=== PATIENT | female | born 1935 | race Caucasian/White ===

== ENCOUNTER 2017-10-12 11:45 | Inpatient (IN) | payer MEDICARE ==
[2017-10-12] MEDS ORDERED: ONDANSETRON HCL IV 4 MG/2 ML VIAL IV ONE (11:59)
[2017-10-12] MEDS ORDERED: 0.9 % SODIUM CHLORIDE 1,000 ML BAG IV ONE (11:59)
--- NOTE | 2017-10-12 12:14 | Emergency Department Record ---
History of Present Illness - General Chief complaint: Nausea, Vomiting, Diarrhea Stated complaint: VOMITING AND DIARRHEA Time Seen by Provider: 10/12/17 11:58 Source: Patient Mode of Arrival: Ambulatory Limitations: No limitations - History of Present Illness Initial comments: The patient is here due to a one day hx of frequent nausea, vomiting, and loose watery stools. She also is having diffuse AP that now seems to be worse in the lower abdomen. There has been no reported fever, blood in the vomit or stool, dysuria or back pain. The patient has had multiple abdominal surgeries including an Appendectomy and Cholecystectomy. MD complaint: Abdominal pain, Diarrhea, Nausea, Vomiting Onset/Timin -: Days(s) Description of Vomiting: Watery Description of Diarrhea: Water Location: Diffuse Severity: Moderate Severity scale (1-10): 5 Quality: Aching, Constant, Cramping - Related Data Home Medications Medication Instructions Recorded Confirmed Last Taken Cholecalciferol (Vitamin D3) 2,000 unit PO DAILY 10/12/17 10/12/17 1 Day Ago [Vitamin D3] ~10/11/17 Hydrocodone/Acetaminophen [[place] 1 tab PO Q6H PRN 10/12/17 10/12/17 1 Day Ago 5mg/325mg] ~10/11/17 Previous Rx's Medication Instructions Recorded Dicyclomine HCl [Bentyl] 10 mg PO Q8H #20 cap 04/30/16 Allergies Allergy/AdvReac Type Severity Reaction Status Date / Time citalopram hydrobromide Allergy Severe CONFUSION Verified 10/12/17 11:58 [From Celexa] nifedipine [From PROCARDIA] Allergy Severe CHF Verified 10/12/17 11:58 pregabalin [From LYRICA] Allergy Severe SWELLING Verified 10/12/17 11:58 OF THE FACE hydromorphone HCl Allergy Intermediate BEHAVIORAL Verified 10/12/17 11:58 [From DILAUDID] CHANGES mirabegron [From Myrbetriq] Allergy Intermediate RASH Verified 10/12/17 11:58 morphine [MORPHINE] Allergy Unknown BEHAVIORAL Verified 10/12/17 11:58 CHANGES amitriptyline AdvReac ALTERED Verified 10/12/17 12:38 MENTAL STATUS carbamazepine AdvReac NAUSEA Verified 10/12/17 12:38 gabapentin AdvReac DIZZINESS Verified 10/12/17 12:38 oxcarbazepine AdvReac MUSCLE PAIN Verified 10/12/17 12:38 oxycodone AdvReac MUSCLE PAIN Verified 10/12/17 12:38 phenytoin [From Dilantin] AdvReac HYPERSENSIT Verified 10/12/17 12:38 IVITY potassium chloride AdvReac MUSCLE PAIN Verified 10/12/17 12:38 Travel Screening - Travel/Exposure Within Last 30 Days Have you traveled within the last 30 days?: No - Travel/Exposure Within Last Year Have you traveled outside the [place] in the last year?: No - Additonal Travel Details Have you been exposed to anyone with a communicable illness?: No - Travel Symptoms Symptom Screening: None Review of Systems Constitutional: Denies: Chills, Fever Eyes: Denies: Eye discharge ENT: Denies: Congestion Respiratory: Denies: Cough, Dyspnea Past Medical History - SOCIAL HISTORY Smoking Status: Never smoker Alcohol Use: None Drug Use: None - RESPIRATORY Hx Respiratory Disorders: No - CARDIOVASCULAR Hx Cardio Disorders: No - NEURO Hx Neuro Disorders: Yes Hx Neuropathy: Yes - GI Hx Diverticulitis: Yes Hx Reflux: Yes Hx Hepatitis/Jaundice: Yes (hep b 1964) Hx Irritable Bowel: Yes - Hx Genitourinary Disorders: No - ENDOCRINE Hx Endocrine Disorders: No - MUSCULOSKELETAL Hx Musculoskeletal Disorders: Yes Hx Arthritis: Yes - PSYCH Hx Psych Problems: No - HEMATOLOGY/ONCOLOGY Hx Hematology/Oncology Disorders: Yes Hx Cancer: Yes Comment:: gall bladder Family Medical History Any Significant Family History?: Yes Physical Exam - General General Appearance: Alert, Oriented x3, Cooperative, No acute distress - Head Head exam: Atraumatic, Normocephalic, Normal inspection - Eye Eye exam: Normal appearance, PERRL - Neck Neck exam: Normal inspection, Full ROM. negative: Tenderness - Respiratory Respiratory exam: Normal lung sounds bilaterally. negative: Respiratory distress - Cardiovascular Cardiovascular Exam: Regular rate, Normal rhythm, Normal heart sounds - GI/Abdominal GI/Abdominal exam: Soft, Tenderness (There is diffuse tenderness in all 4 quads. ). negative: Guarding, Organomegaly, Pulsatile mass, Rebound, Rigid - Extremities Extremities exam: Normal inspection, Full ROM, Normal capillary refill. negative: Tenderness - Neurological Neurological exam: Alert. negative: Motor sensory deficit Course Vital Signs 10/12/17 11:50 Temperature 98.4 F Pulse Rate 96 H Respiratory 16 Rate Blood Pressure 129/52 Pulse Ox 98 - Reevaluation(s) Reevaluation #1: The patient is doing better at this time. She is resting comfortably and is not requesting any pain medicines. 10/12/17 12:37 Reevaluation #2: The patient is doing better at this time. Her pain is much improved and she denies any nausea or vomiting. I did discuss the CT results with her and the need for admission here at [facility]. 10/12/17 15:33 Reevaluation #3: I did discuss the case with Shruthi ([employer]) and she does accept the admission for Dr. Olsen. We also will place a consult to Dr. Tipton. 10/12/17 15:40 Reevaluation #4: I did discuss the case with Dr. Tipton and he agrees with the plan and will consult. 10/12/17 16:06 Medical Decision Making - Data Complexity MDM Data: Labs Ordered and/or Reviewed, X-Ray Ordered and/or Reviewed - Lab Data Result diagrams: 10/12/17 14:43 10/12/17 12:05 - Radiology Data Radiology results: Report reviewed (Abd CT: Partial SBO with transition point in the small bowel. ) Disposition Disposition: Admit Clinical Impression: Small bowel obstruction due to adhesions Disposition: Still a Patient at [facility] Decision to Admit: Admit from ER Decision to Admit Date: 10/12/17 Decision to Admit Time: 15:34 Accepting Physician: Raúl Time Discussed w/Accepting Physician: 15:35 Condition: (2) Stable Time of Disposition: 15:35 Quality - Quality Measures Quality Measures: N/A - Blood Pressure Screening View Details: Yes Does Patient Have Any of the Following: No Blood Pressure Classification: Pre-Hypertensive BP Reading Systolic Measurement: 129 Diastolic Measurement: 52 Screening for High Blood Pressure: < Pre-Hypertensive BP, F/U Documented > [ [id number]] Pre-Hypertensive Follow-up Interventions: Referral to alternative/primary care provider.
[2017-10-12 12:24] LABS: HEMATOCRIT 42.6 % (35.0-47.0); HEMOGLOBIN 13.8 gm/dl (11.6-16.0); MEAN CELL VOLUME 76.6 fl (81-97); MEAN CORPUSCULAR HEMOGLOBIN 24.8 pg (27-33); MEAN CORPUSCULAR HGB CONC 32.4 g/dl (32-36); MEAN PLATELET VOLUME 11.6 fl (7.4-10.4); PLATELET COUNT 396 K/uL (130-400); RED BLOOD COUNT 5.56 M/uL (3.80-5.40)
[2017-10-12 12:25] LABS: BLOOD UREA NITROGEN 19 mg/dL (8-23)
[2017-10-12 12:26] LABS: CREATININE 0.9 mg/dL (0.5-0.9); EST GLOMERULAR FILTRATION RATE > 60 mL/min; WHITE BLOOD COUNT W/O DIFF 22.4 K/uL (4.2-12.2)
[2017-10-12 12:28] LABS: GLUCOSE,RANDOM 158 mg/dL (74-109)
[2017-10-12 12:31] LABS: ALBUMIN 3.8 g/dL (4.0-5.0); ALKALINE PHOSPHATASE 93 U/L (35-104); ALT/SGPT 13 U/L (<33); AST/SGOT 18 U/L (10.0-35.0); LIPASE 26 U/L (13-60)
[2017-10-12 12:35] LABS: BILIRUBIN,DIRECT < 0.2 mg/dL (0-0.3)
[2017-10-12 12:36] LABS: PLATELET ESTIMATE NORMAL (NORMAL)
[2017-10-12] MEDS ORDERED: ONDANSETRON HCL IV 4 MG/2 ML VIAL IVP ONE (13:00)
[2017-10-12] MEDS ORDERED: KETOROLAC 30 MG/ML VIAL IVP ONE (13:00)
[2017-10-12 13:38] LABS: URINE APPEARANCE CLEAR; URINE BILIRUBIN NEGATIVE (NEGATIVE); URINE BLOOD NEGATIVE (NEGATIVE); URINE COLOR YELLOW; URINE GLUCOSE (UA) NEGATIVE (NEGATIVE); URINE KETONE NEGATIVE (NEGATIVE); URINE LEUKOCYTE ESTERASE NEGATIVE (NEGATIVE); URINE NITRITE NEGATIVE (NEGATIVE); URINE PROTEIN NEGATIVE (NEGATIVE); URINE UROBILINOGEN 0.2 E.U./dL (0.20 - 1.00)
[2017-10-12] MEDS ORDERED: 0.9 % SODIUM CHLORIDE 1000ML 1,000 ML IV ONE (14:09)
[2017-10-12 14:49] LABS: HEMATOCRIT 36.8 % (35.0-47.0); HEMOGLOBIN 11.8 gm/dl (11.6-16.0); MEAN CELL VOLUME 77.3 fl (81-97); MEAN CORPUSCULAR HEMOGLOBIN 24.8 pg (27-33); MEAN CORPUSCULAR HGB CONC 32.1 g/dl (32-36); MEAN PLATELET VOLUME 11.6 fl (7.4-10.4); PLATELET COUNT 284 K/uL (130-400); RED BLOOD COUNT 4.76 M/uL (3.80-5.40); RED CELL DISTRIBUTION WIDTH 19.4 % (11.5-14.5); WHITE BLOOD COUNT W/O DIFF 18.2 K/uL (4.2-12.2)
[2017-10-12] MEDS ORDERED: ACETAMINOPHEN 1,000 MG/100 ML BTL IVPB PRN (16:18)
[2017-10-12] MEDS ORDERED: ONDANSETRON HCL IV 4 MG/2 ML VIAL IVP PRN (16:18)
[2017-10-12] MEDS ORDERED: PNEUM 13-VAL/PF 0.5 ML IM ONE (16:40)
[2017-10-12] MEDS: PANTOPRAZOLE SODIUM IV 40 MG VIAL IV SCH (17:13)
[2017-10-12] MEDS: ALPRAZOLAM 0.25 MG TABLET PO SCH (22:09)
[2017-10-13 06:56] LABS: BASO % 0.1 % (0-6); EOS % 2.3 % (0-6); GRAN % 65.4 % (47-80); HEMATOCRIT 35.4 % (35.0-47.0); HEMOGLOBIN 10.9 gm/dl (11.6-16.0); LYMPH % 24.2 % (16-45); MEAN CELL VOLUME 78.8 fl (81-97); MEAN CORPUSCULAR HGB CONC 30.8 g/dl (32-36); MEAN PLATELET VOLUME 11.4 fl (7.4-10.4); PLATELET COUNT 257 K/uL (130-400); RED BLOOD COUNT 4.49 M/uL (3.80-5.40); RED CELL DISTRIBUTION WIDTH 19.3 % (11.5-14.5); WHITE BLOOD COUNT W/O DIFF 8.5 K/uL (4.2-12.2)
[2017-10-13 06:59] LABS: MEAN CORPUSCULAR HEMOGLOBIN 24.2 pg (27-33)
[2017-10-13 07:10] LABS: ALB/GLOB RATIO 1.2 (1.1-1.8); ALBUMIN 2.8 g/dL (4.0-5.0); ALKALINE PHOSPHATASE 66 U/L (35-104); ALT/SGPT 9 U/L (<33); AST/SGOT 13 U/L (10.0-35.0); BLOOD UREA NITROGEN 10 mg/dL (8-23); CREATININE 0.8 mg/dL (0.5-0.9); EST GLOMERULAR FILTRATION RATE > 60 mL/min; GLUCOSE,RANDOM 96 mg/dL (74-109); TOTAL PROTEIN 5.2 g/dL (6.6-8.7)
--- NOTE | 2017-10-13 07:16 | History & Physical ---
<PADMINI MONTGOMERY - Last Filed: 10/13/17 07:15> History of Present Illness - Date of Service Date of Service for History & Physical: 10/13/17 - History of Present Illness Admitting Diagnosis: 1. Partial Small Bowell Obstruction. Travel Screening - Travel/Exposure Within Last 30 Days Have you traveled within the last 30 days?: No - Travel/Exposure Within Last Year Have you traveled outside the [place] in the last year?: No - Additonal Travel Details Have you been exposed to anyone with a communicable illness?: No - Travel Symptoms Symptom Screening: None Review of Systems Constitutional: Denies: Chills, Fever Eyes: Denies: Eye discharge ENT: Denies: Congestion Respiratory: Denies: Cough, Dyspnea Past Medical History - SOCIAL HISTORY Smoking Status: Never smoker Alcohol Use: None Drug Use: None - RESPIRATORY Hx Respiratory Disorders: No - CARDIOVASCULAR Hx Cardio Disorders: No - NEURO Hx Neuro Disorders: Yes Hx Neuropathy: Yes - GI Hx Diverticulitis: Yes Hx Reflux: Yes Hx Hepatitis/Jaundice: Yes (hep b 1964) Hx Irritable Bowel: Yes - Hx Genitourinary Disorders: No - ENDOCRINE Hx Endocrine Disorders: No - MUSCULOSKELETAL Hx Musculoskeletal Disorders: Yes Hx Arthritis: Yes - PSYCH Hx Psych Problems: No - HEMATOLOGY/ONCOLOGY Hx Hematology/Oncology Disorders: Yes Hx Cancer: Yes Comment:: gall bladder Family Medical History Any Significant Family History?: Yes H&P Meds/Allergies - Allergies Allergies: Allergies Allergy/AdvReac Type Severity Reaction Status Date / Time citalopram hydrobromide Allergy Severe CONFUSION Verified 10/12/17 11:58 [From Celexa] nifedipine [From PROCARDIA] Allergy Severe CHF Verified 10/12/17 11:58 pregabalin [From LYRICA] Allergy Severe SWELLING Verified 10/12/17 11:58 OF THE FACE hydromorphone HCl Allergy Intermediate BEHAVIORAL Verified 10/12/17 11:58 [From DILAUDID] CHANGES mirabegron [From Myrbetriq] Allergy Intermediate RASH Verified 10/12/17 11:58 morphine [MORPHINE] Allergy Unknown BEHAVIORAL Verified 10/12/17 11:58 CHANGES amitriptyline AdvReac ALTERED Verified 10/12/17 12:38 MENTAL STATUS carbamazepine AdvReac NAUSEA Verified 10/12/17 12:38 gabapentin AdvReac DIZZINESS Verified 10/12/17 12:38 oxcarbazepine AdvReac MUSCLE PAIN Verified 10/12/17 12:38 oxycodone AdvReac MUSCLE PAIN Verified 10/12/17 12:38 phenytoin [From Dilantin] AdvReac HYPERSENSIT Verified 10/12/17 12:38 IVITY potassium chloride AdvReac MUSCLE PAIN Verified 10/12/17 12:38 - Home Medications Home Medications Medication Instructions Recorded Confirmed Last Taken Cholecalciferol (Vitamin D3) 2,000 unit PO DAILY 10/12/17 10/12/17 1 Day Ago [Vitamin D3] ~10/11/17 Hydrocodone/Acetaminophen [[place] 1 tab PO Q6H PRN 10/12/17 10/12/17 1 Day Ago 5mg/325mg] ~10/11/17 Previous Rx's Medication Instructions Recorded Dicyclomine HCl [Bentyl] 10 mg PO Q8H #20 cap 04/30/16 - Active Medications Active Medications: Current Medications Alprazolam (Xanax) 0.5 mg PO QHS [facility] Last Admin: 10/12/17 22:09 Dose: 0.5 mg Sodium Chloride () 1,000 mls @ 125 mls/hr IV .Q8H PRN PRN Reason: LARGE VOLUME IV Acetaminophen (Ofirmev) 1,000 mg in 100 mls @ 400 mls/hr IVPB Q6H PRN PRN Reason: Pain - General Metoprolol Succinate (Toprol Xl) 100 mg PO DAILY [facility] Non-Formulary Medication (Irbesartan/Hydrochlorothiazide [Avalide 150-12.5 Mg Tablet]) 1 tab PO DAILY [facility] Ondansetron HCl (Zofran) 4 mg IVP Q4H PRN PRN Reason: NAUSEA Pantoprazole Sodium (Protonix Iv) 40 mg IV DAILY [facility] Last Admin: 10/12/17 17:13 Dose: 40 mg Physical Exam - Vital Signs Vital Signs: Vital Signs - Last 24 Hrs Temp Pulse Resp BP Pulse Ox 10/13/17 06:00 97.8 F 82 18 121/58 94 L 10/13/17 02:00 97.3 F L 92 H 18 118/64 95 10/12/17 22:18 98.7 F 96 H 18 126/67 92 L 10/12/17 21:00 18 12/11/17 18:18 97.1 F L 80 13 107/56 94 L 10/12/17 16:47 20 10/12/17 16:18 97.6 F 75 16 131/66 98 - General General Appearance: Alert, Oriented x3, Cooperative, No acute distress Limitations: No limitations - Head Head exam: Atraumatic, Normocephalic, Normal inspection - Eye Eye exam: Normal appearance, PERRL - Neck Neck exam: Normal inspection, Full ROM. negative: Tenderness - Respiratory Respiratory exam: Normal lung sounds bilaterally. negative: Respiratory distress - Cardiovascular Cardiovascular Exam: Regular rate, Normal rhythm, Normal heart sounds - GI/Abdominal GI/Abdominal exam: Soft, Tenderness (There is diffuse tenderness in all 4 quads. ). negative: Guarding, Organomegaly, Pulsatile mass, Rebound, Rigid - Extremities Extremities exam: Normal inspection, Full ROM, Normal capillary refill. negative: Tenderness - Neurological Neurological exam: Alert. negative: Motor sensory deficit Results - Labs Result Diagrams: 10/13/17 06:43 10/12/17 12:05 Labs Last 24 Hours: Laboratory Results - last 24 hr 10/13/17 10/13/17 10/13/17 06:43 06:43 06:43 WBC 8.5 RBC 4.49 Hgb 10.9 L Hct 35.4 MCV 78.8 L MCH 24.2 L MCHC 30.8 L RDW 19.3 H Plt Count 257 MPV 11.4 H Gran % 65.4 Lymphocytes % 24.2 Monocytes % 8.0 Eosinophils % 2.3 Basophils % 0.1 Lactic Acid Cancelled 0.9 Plan - Inpatient Certification Inpatient Certification: Admit to inpatient care: Based on my medical assessment, after consideration of patient's risk factors (age, co-morbidities and patient presenting symptoms and acuity), I expect that this patient will remain in the hospital greater than or equal to two midnights and that the services needed warrant inpatient care because: Patient Risk Factors: [] Estimated length of stay: [] The patient may reasonably be expected to be discharged or transferred to a hospital within 96 hours after admission to [facility]. Services needed: [] Post hospital care (if known): [] I certify that my determination is in accordance with my understanding of Medicare requirements for reasonable and necessary inpatient services. <Marleny Gonsales - Last Filed: 10/13/17 12:07> History of Present Illness - Date of Service Date of Service for History & Physical: 10/13/17 - History of Present Illness History of Present Illness: Nela is a 82 year-old female with a history of diverticulosis, multiple abdominal surgeries, including small bowel obstruction, appendectomy, cholecystectomy, and hysterectomy. On 10/12/17, she presented to the ED with a one day history of frequent nausea, vomiting, and loose watery stools. She was also experiencing diffuse abdominal pain, worse in her lower abdomen. She denied fever, blood in her vomit or stool, dysuria, and back pain. Her vital signs were stable and her labratory findings were unremarkable. A CT was done and it demonstrated a change in the caliber of small bowel at a previous anastomosis site, mildly dilated proximally and nondilated distally- incomplete /intermitent small bowel obstruction at anastomosis. The case was discussed with Dr. Palma and conservative treatment was chosen with IV fluids, NPO, and protonix. She was admitted for small bowel obstruction, observations status. 10/13/17 0930- Pt. is resting comfortable in bed. She has remained NPO and she currently denies abdominal pain. She states that she is passing gas and small amounts of loose/mucous stools. Her vital signs this morning are stable, and her labs are unremarkable except for slightly decreased Hbg (10.9). She also has oral thrush at the present time, which she does have a history of. Oral nystatin was ordered this morning. Plan today is to advance diet as tolerated. If she is tolerating diet without nausea, vomiting, and abdominal pain, her IV fluids will be discontinued and IV meds changed to PO. Plan to discharge either late this evening or tomorrow morning. Review of Systems Cardiovascular: Denies: Arrhythmia, Chest pain, Edema, Murmurs Endocrine: Denies: Fatigue, Heat or cold intolerance Gastrointestinal: Reports: Other (loose/mucous-like stools). Denies: Abdominal pain, Constipation, Nausea, Vomiting Genitourinary: Denies: Dysuria, Incontinence, Urgency Musculoskeletal: Denies: Arthralgia, Back pain, Neck pain Skin: Denies: Bruising, Pruritus, Rash Neurological: Reports: As per HPI Psychiatric: Denies: Anxiety, Depression Hematological/Lymphatic: Reports: As per HPI H&P Meds/Allergies - Active Medications Active Medications: Current Medications Alprazolam (Xanax) 0.5 mg PO QHS [facility] Last Admin: 10/12/17 22:09 Dose: 0.5 mg Sodium Chloride () 1,000 mls @ 125 mls/hr IV .Q8H PRN PRN Reason: LARGE VOLUME IV Acetaminophen (Ofirmev) 1,000 mg in 100 mls @ 400 mls/hr IVPB Q6H PRN PRN Reason: Pain - General Metoprolol Succinate (Toprol Xl) 100 mg PO DAILY [facility] Last Admin: 10/13/17 09:21 Dose: 100 mg Non-Formulary Medication (Irbesartan/Hydrochlorothiazide [Avalide 150-12.5 Mg Tablet]) 1 tab PO DAILY [facility] Nystatin () 5 ml PO QID [facility] Last Admin: 10/13/17 09:21 Dose: 5 ml Ondansetron HCl (Zofran) 4 mg IVP Q4H PRN PRN Reason: NAUSEA Pantoprazole Sodium (Protonix Iv) 40 mg IV DAILY [facility] Last Admin: 10/13/17 09:23 Dose: 40 mg Zinc Oxide (Desitin) 28.35 gm TOP ASDIR PRN PRN Reason: RASH Physical Exam - Vital Signs Vital Signs: Vital Signs - Last 24 Hrs Temp Pulse Resp BP Pulse Ox 10/13/17 09:00 16 10/13/17 06:00 97.8 F 82 18 121/58 94 L 10/13/17 02:00 97.3 F L 92 H 18 118/64 95 10/12/17 22:18 98.7 F 96 H 18 126/67 92 L 10/12/17 21:00 18 10/12/17 18:18 97.1 F L 80 13 107/56 94 L 10/12/17 16:47 20 10/12/17 16:18 97.6 F 75 16 131/66 98 - General General Appearance: Alert, Oriented x3, Cooperative, No acute distress - Eye Eye exam: Normal appearance - ENT Mouth exam: Other (posterior tongue thrush) Throat exam: Other (Posterior pharynx thrush) - Neck Neck exam: Normal inspection - Respiratory Respiratory exam: Normal lung sounds bilaterally - Cardiovascular Cardiovascular Exam: Regular rate, Normal rhythm, Normal heart sounds - GI/Abdominal GI/Abdominal exam: Normal bowel sounds, Tenderness (tenderness with light palpation of RUQ and epigastric areas) - Rectal Rectal exam: Deferred - exam: Deferred - Extremities Extremities exam: Normal inspection, Normal capillary refill. negative: Pedal edema - Neurological Neurological exam: Alert, Oriented X3 - Psychiatric Psychiatric exam: Normal affect, Normal mood Results - Labs Result Diagrams: 10/13/17 06:43 10/13/17 06:43 Labs Last 24 Hours: Laboratory Results - last 24 hr 10/13/17 10/13/17 10/13/17 06:43 06:43 06:43 WBC 8.5 RBC 4.49 Hgb 10.9 L Hct 35.4 MCV 78.8 L MCH 24.2 L MCHC 30.8 L RDW 19.3 H Plt Count 257 MPV 11.4 H Gran % 65.4 Lymphocytes % 24.2 Monocytes % 8.0 Eosinophils % 2.3 Basophils % 0.1 Sodium 141 Potassium 3.3 L Chloride 106 Carbon Dioxide 27.0 Anion Gap 8.0 BUN 10 Creatinine 0.8 Estimated GFR > 60 Random Glucose 96 Lactic Acid Cancelled 0.9 Calcium 7.8 L Total Bilirubin 0.80 AST 13 ALT 9 Alkaline Phosphatase 66 Total Protein 5.2 L Albumin 2.8 L Globulin 2.4 Albumin/Globulin Ratio 1.2 VTE H&P Assessment - Risk for VTE Risk for VTE: Yes Risk Level: Very Low Risk Assessment Date: 10/13/17 Risk Assessment Time: 10:14 VTE Orders Placed or Will Be Placed: No VTE Reason for No Prophylaxis: Not Indicated (Observation status, no functional limitations, no cormidities, will reassess if stay >24 hours) Plan - Inpatient Certification Inpatient Certification: Admit to inpatient care: Based on my medical assessment, after consideration of patient's risk factors (age, co-morbidities and patient presenting symptoms and acuity), I expect that this patient will remain in the hospital greater than or equal to two midnights and that the services needed warrant inpatient care because: Patient Risk Factors: [] Estimated length of stay: [] The patient may reasonably be expected to be discharged or transferred to a hospital within 96 hours after admission to [facility]. Services needed: [] Post hospital care (if known): [] I certify that my determination is in accordance with my understanding of Medicare requirements for reasonable and necessary inpatient services. - Detailed Diagnosis and Plan (1) Small bowel obstruction due to postoperative adhesions Current Visit: Yes Status: Acute Base Code: K91.30 - POSTPROC INTESTINAL OBST, UNSP TO PARTIAL VERSUS COMPLETE Comment: 10/13/17- Pt. is resting comfortably at present time, she denies abdominal pain, nausea, and vomiting. Her vital signs have remained stable and her lab findings are unremarkable except for slightly decreased Hgb (10.9 from 11.8 on 09/12). She states she is passing gas and she has had some loose/mucous-like stools. Plan to advance diet as tolerated. If tolerating PO diet, will discontinue IV fluids this afternoon. Presently on NS at 125ml/hour and Protonix IV 40mg daily. (2) Hypertension Current Visit: Yes Status: Acute Base Code: I10 - ESSENTIAL (PRIMARY) HYPERTENSION Comment: 10/13/17- Blood pressure and pulse rate have remained within normal limits. Pt. denies chest pain, headache, dizziness, and vision change. Continue Toprol XL 100mg daily and Avalide 150-12.5 daily. (3) Oral thrush Current Visit: Yes Status: Acute Base Code: B37.0 - CANDIDAL STOMATITIS Comment: 10/13/17- Oral thrush, started treatment this morninng with PO Nystatin 5ml four times daily. (4) Full code status Current Visit: Yes Status: Acute Base Code: Z78.9 - OTHER SPECIFIED HEALTH STATUS Comment: 10/13/18- Pt. is full code status - Disposition Will assess how pt. is tolerating advancing diet this afternoon. If no nausea, vomiting, or abdominal pain, and continued passage of stool, will plan to discharge this evening or tomorrow morning.
--- NOTE | 2017-10-13 07:21 | CT SCAN REPORT ---
EXAM: CT OF THE ABDOMEN AND PELVIS WITH CONTRAST HISTORY: ABDOMINAL PAIN, NAUSEA, VOMITING AND DIARRHEA. APPENDECTOMY. HYSTERECTOMY. HISTORY OF GALLBLADDER CARCINOID IN 2010. TECHNIQUE: Axial CT scan of the abdomen and pelvis was performed following both oral and IV contrast administration utilizing a dose of 100 ml of Omnipaque 300 as the IV contrast. Oral contrast was also utilized. Comparison: CT abdomen and pelvis 04/30/16. FINDINGS: The gallbladder is not identified, presumably surgically absent. There is questionably a small appendiceal remnant present. The uterus is not identified consistent with the surgical history. Tiny low attenuation mass inferiorly right lobe of the liver as before consistent with a tiny hepatic cyst or hemangioma. No definite splenic, adrenal , pancreatic, or renal mass identified. Moderate diverticulosis sigmoid colon, but no definite diverticulitis. Oral contrast has reached the cecum with no small bowel obstruction identified. There are some mildly dilated loops of small bowel, predominantly representing the jejunum measuring up to about 3.4 cm in size. There is again seen to be a small bowel suture line in the anterior aspect of the mid abdomen and there does appear to be a change in caliber of the small bowel at this level, being nondistended distally and distended up to the level of the anastomosis. With the oral contrast passing into the more distal small bowel and cecum this may represent a point of incomplete or intermittent small bowel obstruction. There is a small to moderate amount of free fluid today seen in the lower mesentery and low pelvis. No free intraperitoneal air is identified. IMPRESSION: 1. POSTOP CHOLECYSTECTOMY, HYSTERECTOMY, SMALL BOWEL ANASTOMOSIS MID ABDOMEN ANTERIORLY, AND APPENDECTOMY WITH THE POSSIBILITY OF A VERY SMALL APPENDICEAL REMNANT PRESENT. 2. CHANGE IN CALIBER OF THE SMALL BOWEL AT THE LEVEL OF THE ANASTOMOSIS, MILDLY DILATED PROXIMAL TO THIS AND NONDILATED DISTALLY. ORAL CONTRAST PASSES INTO THE PROXIMAL COLON. FINDINGS SUGGEST INCOMPLETE OR INTERMITTENT SMALL BOWEL OBSTRUCTION AT THE LEVEL OF THE ANASTOMOSIS. 3. PROMINENT DIVERTICULOSIS LEFT SIDE OF THE COLON, BUT NO DIVERTICULITIS EVIDENT. 4. STABLE TINY LOW ATTENUATION FOCUS IN THE LIVER LIKELY A SMALL CYST OR HEMANGIOMA. JOB NUMBER: [id number] [facility]
[2017-10-13] MEDS: NYSTATIN 100,000 UNITS/ML 5ML CUP PO SCH ×2 (09:21→12:59)
[2017-10-13] MEDS: METOPROLOL SUCC 50 MG TABLET PO SCH (09:21)
[2017-10-13] MEDS: PANTOPRAZOLE SODIUM IV 40 MG VIAL IV SCH (09:23)
[2017-10-13] MEDS ORDERED: ZINC OXIDE 28.35 GM TUBE TOP PRN (09:39)
[2017-10-13] MEDS: IRBESARTAN PO SCH (10:05)
[2017-10-13] MEDS: HYDROCHLOROTHIAZIDE PO SCH (10:05)
[2017-10-13] MEDS: 0.9 % SODIUM CHLORIDE 1000ML 1,000 ML IV PRN ×2 (12:52→20:46)
[2017-10-13] MEDS ORDERED: HYDROCODONE/APAP 5/325MG TABLET PO PRN ×2 (14:38→17:37)
[2017-10-13] MEDS ORDERED: FLUCONAZOLE 100 MG TABLET PO ONE (16:22)
[2017-10-13] MEDS: ALPRAZOLAM 0.25 MG TABLET PO SCH (22:14)
[2017-10-14] MEDS: 0.9 % SODIUM CHLORIDE 1000ML 1,000 ML IV PRN (04:28)
[2017-10-14] MEDS: NYSTATIN 100,000 UNITS/ML 5ML CUP PO SCH ×2 (09:18→09:58)
[2017-10-14] MEDS: IRBESARTAN PO SCH (09:58)
[2017-10-14] MEDS: METOPROLOL SUCC 50 MG TABLET PO SCH (09:58)
[2017-10-14] MEDS: HYDROCHLOROTHIAZIDE PO SCH (09:58)
[2017-10-14] MEDS: PANTOPRAZOLE SODIUM IV 40 MG VIAL IV SCH (09:58)
[2017-10-14] MEDS ORDERED: FLUCONAZOLE 100 MG TABLET PO SCH (10:00)
--- NOTE | 2017-10-14 14:37 | Discharge Summary ---
Providers Discharge Summary Date: 10/16/17 Date of admission: 10/12/17 16:14 Attending physician: Haresh Olsen Primary care physician: LYNN MATOS D.O. Physical Exam - Vital Signs Vital Signs: Vital Signs - Last 24 Hrs Temp Pulse Resp BP Pulse Ox 10/14/17 10:00 97.6 F 67 18 141/60 96 10/14/17 09:00 16 10/13/17 22:00 97.8 F 69 16 149/56 94 L 10/13/17 21:00 69 16 10/13/17 17:17 97.8 F 69 16 128/62 95 - General General Appearance: Alert, Oriented x3, Cooperative, No acute distress Limitations: No limitations - Head Head exam: Atraumatic, Normocephalic, Normal inspection - Eye Eye exam: Normal appearance - ENT Mouth exam: Other (posterior tongue thrush) Throat exam: Other (Posterior pharynx thrush) - Neck Neck exam: Normal inspection - Respiratory Respiratory exam: Normal lung sounds bilaterally - Cardiovascular Cardiovascular Exam: Regular rate, Normal rhythm, Normal heart sounds - GI/Abdominal GI/Abdominal exam: Normal bowel sounds, Tenderness (tenderness with light palpation of RUQ and epigastric areas) - Rectal Rectal exam: Deferred - exam: Deferred - Extremities Extremities exam: Normal inspection, Normal capillary refill. negative: Pedal edema - Neurological Neurological exam: Alert, Oriented X3 - Psychiatric Psychiatric exam: Normal affect, Normal mood Hospitalization - Hospitalization Admission Diagnosis: 1. Partial Small Bowell Obstruction. - Problem List/Discharge Diagnosis (1) Hypertension Status: Acute Base Code: I10 - ESSENTIAL (PRIMARY) HYPERTENSION Comment: 10/18- Blood pressure and pulse rate have remained within normal limits. Pt. denies chest pain, headache, dizziness, and vision change. Continue Toprol XL 100mg daily and Avalide 150-12.5 daily. (2) Oral thrush Status: Acute Base Code: B37.0 - CANDIDAL STOMATITIS Comment: 10/13/17- Oral thrush, started treatment this morninng with PO Nystatin 5ml four times daily. Changed to Diflucan 100mg daily (3) Small bowel obstruction due to postoperative adhesions Status: Acute Base Code: K91.30 - POSTPROC INTESTINAL OBST, UNSP TO PARTIAL VERSUS COMPLETE Comment: Pt. is resting comfortably at present time, she denies abdominal pain, nausea, and vomiting. Her vital signs have remained stable and her lab findings are unremarkable except for slightly decreased Hgb ( 10.9 from 11.8 on 09/12). She states she is passing gas and she has had some loose/mucous-like stools. Plan to advance diet as tolerated. If tolerating PO diet, will discontinue IV fluids this afternoon. Presently on NS at 125ml/hour and Protonix IV 40mg daily. (4) Full code status Status: Acute Base Code: Z78.9 - OTHER SPECIFIED HEALTH STATUS Comment: full code status - Hospitalization Course Disposition: Home, Self-Care Hospital Course: Nela Vilchis is a 82 year-old female with a history of diverticulosis, multiple abdominal surgeries, including small bowel obstruction , appendectomy, cholecystectomy, and hysterectomy. On 10/12/17, she presented to the ED with a one day history of frequent nausea, vomiting, and loose watery stools. She was also experiencing diffuse abdominal pain, worse in her lower abdomen. She denied fever, blood in her vomit or stool, dysuria, and back pain. Her vital signs were stable and her labratory findings were unremarkable. A CT was done and it demonstrated a change in the caliber of small bowel at a previous anastomosis site, mildly dilated proximally and nondilated distally- incomplete/intermitent small bowel obstruction at anastomosis. The case was discussed with Dr. Palma and conservative treatment was chosen with IV fluids, NPO, and protonix. She was admitted for small bowel obstruction, observations status. 10/13/17 0930- Pt. is resting comfortable in bed. She has remained NPO and she currently denies abdominal pain. She states that she is passing gas and small amounts of loose/mucous stools. Her vital signs this morning are stable, and her labs are unremarkable except for slightly decreased Hbg (10.9). She also has oral thrush at the present time, which she does have a history of. Oral nystatin was ordered this morning. Plan today is to advance diet as tolerated. If she is tolerating diet without nausea, vomiting, and abdominal pain, her IV fluids will be discontinued and IV meds changed to PO. The patient was able to tolerate food without any new or worsening of symptoms. She was discharged home to follow up with the [facility] in several days. Abnormal Labs: Abnormal Lab Results 10/13/17 10/13/17 Range/Units 06:43 06:43 Hgb 10.9 L (11.6-16.0) gm/dl MCV 78.8 L (81-97) fl MCH 24.2 L (27-33) pg MCHC 30.8 L (32-36) g/dl RDW 19.3 H (11.5-14.5) % MPV 11.4 H (7.4-10.4) fl Potassium 3.3 L (3.4-4.5) mmol/L Calcium 7.8 L (8.8-10.2) mg/dL Total Protein 5.2 L (6.6-8.7) g/dL Albumin 2.8 L (4.0-5.0) g/dL Condition at Discharge: (2) Stable Discharge Medications - Discharge Medications Prescriptions: Chlorhexidine Gluconate [Peridex] 118 ml MM DAILY 5 Days #1 mouthwash Fluconazole [Diflucan] 100 mg PO DAILY #4 tablet Hydrocodone/Acetaminophen [Cleveland 5-325 Tablet] 1 each PO BID PRN 5 Days #10 tablet PRN Reason: Abdominal Pain Home Medications: Ambulatory Orders Alprazolam [Xanax] 0.5 mg PO ASDIR tab 04/30/16 [Last Taken 1 Day Ago ~10/11/17 ] Aspirin [Aspir 81] 81 mg PO DAILY tab.dr 04/30/16 [Last Taken 1 Day Ago ~] Bifidobacterium Infantis [Align] 4 mg PO ASDIR cap 04/30/16 [Last Taken 1 Day Ago ~10/11/17] Clobetasol Propionate 60 gm TP ASDIR 04/30/16 [Last Taken 1 Day Ago ~10/11/17] Dicyclomine HCl [Bentyl] 10 mg PO Q8H #20 cap 04/30/16 [Last Taken 1 Day Ago ~] Docusate Sodium [Dulcolax Stool Softener] 100 mg PO ASDIR cap 04/30/16 [Last Taken 1 Day Ago ~10/11/17] Ezetimibe [Zetia] 10 mg PO QD tab 04/30/16 [Last Taken 1 Day Ago ~10/11/17] Fish Oil/Dha/Epa [Fish Oil 1,200 mg Fish Oil] 1 each PO DAILY cap 04/30/16 [ Last Taken 1 Day Ago ~10/11/17] Irbesartan/Hydrochlorothiazide [Avalide 150-12.5 mg Tablet] 1 tab PO QD tab [Last Taken 1 Day Ago ~10/11/17] Metoprolol Succinate [Toprol Xl] 100 mg PO QD tab 04/30/16 [Last Taken 1 Day Ago ~10/11/17] Multivit-Min/FA/Lycopen/Lutein [Centrum Silver Tablet] 1 each PO DAILY tab [Last Taken 1 Day Ago ~10/11/17] Nystatin/Triamcin [Nystatin-Triamcinolone Cream] 15 gm TP ASDIR 04/30/16 [Last Taken 1 Day Ago ~10/11/17] Omeprazole Magnesium [Prilosec Otc] 20 mg PO QD tab.dr 04/30/16 [Last Taken 1 Day Ago ~10/11/17] Pravastatin Sodium [Pravachol] 40 mg PO QD tab 04/30/16 [Last Taken 1 Day Ago ~ 10/11/17] Psyllium Husk 1 gm MC DAILY 04/30/16 [Last Taken 1 Day Ago ~10/11/17] Ubidecarenone [Co Q10] 200 mg PO ASDIR cap 04/30/16 [Last Taken 1 Day Ago ~08/18] Cholecalciferol (Vitamin D3) [Vitamin D3] 2,000 unit PO DAILY 10/12/17 [Last Taken 1 Day Ago ~10/11/17] Hydrocodone/Acetaminophen [Cleveland 5mg/325mg] 1 tab PO Q6H PRN 10/12/17 [Last Taken 1 Day Ago ~10/11/17] Chlorhexidine Gluconate [Peridex] 118 ml MM DAILY 5 Days #1 mouthwash 10/14/17 [ Last Taken Unknown] Fluconazole [Diflucan] 100 mg PO DAILY #4 tablet 10/14/17 [Last Taken Unknown] Hydrocodone/Acetaminophen [Cleveland 5-325 Tablet] 1 each PO BID PRN 5 Days #10 tablet 10/14/17 [Last Taken Unknown] Discharge Plan - Discharge Instructions Instructions: Bowel Obstruction (DC) Additional Instructions: 2 Activity: up as tolerated Increase activity 2 Diet: Clear liquid, advance diet slowly 2 Consults: [] 2 Follow Up: [With Dr. Herrera on at 3pm ] 2 Dressing/Wound Care: (Type) (Change) 2 Additional: [Continue home medications New medications Diflucan 100mg daily for 3 more days Peridex mouth rinse as directed Cleveland for pain as needed Return to the emergency room with any new or worsening symptoms] Quality Measures - Quality Measures Quality Measures: Advance Directives, Documentation of Current Medications in Medical Record, Elder Maltreatment Screen and Follow-Up Plan, Screening for High Blood Pressure and F/U Documented - Current Medications Quality Measure: Measure #130: Documentation of Current Medications Documentation of Current Medications: <Current Medications Documented/Reviewed> [[id number]] - Blood Pressure Screening Quality Measure: Screening for High Blood Pressure and Follow-Up Documented Does Patient Have Any of the Following: No, Active Dx of HTN Blood Pressure Classification: Pre-Hypertensive BP Reading Systolic Measurement: 129 Diastolic Measurement: 52 Screening for High Blood Pressure: < Normal BP, F/U Not Required > [G1065] - Advance Directives Quality Measure: Measure #47: Care Plan Advance Directives Established: No Advance Directives Information Provided To Patient: No Advance Directives on File: No Living Will: No Advance Care Planning: <Care Plan/Decision Maker Not Decided; Discussed & Documented> [8472F] - Elder Abuse Suspicion Index Screening: Elder Abuse Suspicion Index Screening Rely on people for bathing, dressing, shopping, banking, etc: No Prevented from getting food, clothes, medication, etc: No Made to feel shamed or threatened by someone: No Forced to sign papers or use money against will: No Feel afraid, touched in ways not wanted or hurt physically: No Poor eye contact, withdrawn, malnourished, cuts or bruises: No Screening Result: Negative result EASI Reference Information: Julieta ALEGRIA, Grant C, Odilia D, Lanie M.Development and validation of a tool to assist physicians identification of elder abuse: The Elder Abuse Suspicion Index (EASI ). Journal of Elder Abuse and Neglect, 2008; 20 (3): 276-300. - Elder Maltreatment Screen Quality Measures: Elder Maltreatment Screen and Follow-Up Plan Elder Maltreatment Screen: <Negative, No Follow-Up Plan Required> [G8734]
== END 2017-10-14 13:50 | disposition home or self-care (01) | DRG 389 ==
LOC: ER 11:45 → MEDSURG 16:14
PROVIDERS: ADMIT Internal Medicine; ATTEND Internal Medicine
DX: K56.51 Intestinal adhesions [bands], with partial obstruction (principal); R11.2 Nausea with vomiting, unspecified; R19.7 Diarrhea, unspecified; B37.0 Candidal stomatitis; Z85.09 Personal history of malignant neoplasm of other digestive organs; I10 Essential (primary) hypertension; M19.90 Unspecified osteoarthritis, unspecified site; K58.9 Irritable bowel syndrome, unspecified
CPT/HCPCS: 99285 ×2; 96374; 96375; 83605 ×2; 83690; 80076; 80048; 81003; 85027 ×2; 74177; Q9967; J1885; J2405 ×2; 80053; 85025; 99223; 99239; C9113; J7030

== ENCOUNTER 2019-09-09 11:46 | Inpatient (IN) | payer MEDICARE ==
[2019-09-09] MEDS ORDERED: FLU VAC QS 2019-20 (INPT, 6MO+) 60MCG/0.5ML IM ONE (13:24)
--- NOTE | 2019-09-09 14:30 | Rehab Evaluation ---
Patient Information - Patient Information Diagnosis: Colectomy Ordered Treatment: PT Evaluate and Treat Status: Initial Evaluation Surgery: Yes Past Medical/Surgical Hx: PAST MEDICAL/SURGICAL HISTORY Past Surgical History gall bladder, c section, hyst, perf bowel, bladder suspension,appy, tonsils, cataract PMH - Respiratory Hx Respiratory Disorders No PMH - Cardiovascular Hx Cardiovascular Disorders No Hx Hypertension Yes PMH - Neuro Hx Neurological Disorders Yes Hx Neuropathy Yes: feet PMH - GI Hx Gastrointestinal Disorders Yes Hx Abdominal Pain Yes Hx Diverticulitis Yes Hx Gastroesophageal Reflux Yes Hx Hepatitis/Jaundice Yes: hep b 1965 Hx Irritable Bowel Yes Hx Obstructive Bowel Yes Hx Weight Loss/Weight Gain Yes Comment: colectomy PMH - Hx Genitourinary Disorders No Comment: frequency during night PMH - Endocrine Hx Endocrine Disorders No Hx Diabetes No Hx Thyroid Disease No PMH - Musculoskeletal Hx Musculoskeletal Disorders Yes Hx Arthritis Yes PMH - Psych Hx Psychiatric Problems Yes Hx Anxiety Yes PMH - Hematology/Oncology Hx Hematology/Oncology Yes Disorders Hx Cancer Yes: gallbladder Comment: gall bladder Premorbid Status: Detail (Patient was independent in cooking, cleaning, and laundry. She also did yardwork such as cutting the lawn and gardening. For ambulation, she did not need to use an AD.) Social History: Detail (Patient lives in a 1-story home with her . There are 3 stairs to enter with no railing. She said that their laundry is in the basement and there is a flight of stairs to get down there with 2 railings. In the bathroom there is a walk-in shower with a shower bench and a hand held shower head but no grab bars. The toilet is raised and there are no grab bars but she said there is something for her to hang onto.) Precautions: [place], Fall - Time With Patient Total Time Spent With Patient (Min): 25 Treatment Procedures: Detail (Initial evaluation; low complexity The patient was left in her bed with her call light and bedside table within reach. The nursing staff was notified of her position.) Subjective Information - Subjective Information Per Patient (Patient reported that she was feeling well and did not have any pain.) Objective Data - Pain Pain Present: No - Mental Status Patient Orientation: Oriented x3 (Patient correctly identified her birthdate, age, current location, current month, and current president.) - ROM Within normal limits (LE ROM is within normal limits for functional activities.) - Strength/Tone Other (R hip flexion 3+/5, L hip flexion 4/5, bilateral hip abduction 4/5, bilateral hip adduction 5/5, R knee extension and flexion 4/5, L knee flexion and extension 5/5, bilateral ankle dorsiflexion 4/5. Patient had pain with strength testing of the R hip.) - Coordination Appears within normal limits for therapeutic activities - Bed Mobility Independent (Patient was independent in moving up and down in bed, and from moving side to side in bed.) - Transfers Independent (Patient was independent in moving from supine to sit, sit to supine, sit to stand, and stand to sit.) - Balance Balance Sitting: Good (Patient maintained good static sitting balance and dynamic balance. She was able to don and doff her socks without loss of balance.) Balance Standing: Good (Patient demonstrated good static standing balance without support. She also demonstrated good dynamic balance in being independent in toileting and washing her hands without an AD.) - Sensation Intact - Gait Detail (Patient ambulated 25o feet with a front wheeled walker over smooth and carpeted surfaces independently. She ambulates with a reciprocal step through gait pattern. At the end of the walk she had some shortness of breath.) Therapy Assessment - Therapy Assessment Detail (Patient presents with decreased lower extremity strength and decreased endurance that make her a good candidate for inpatient physical therapy. She will be able to return to her prior functional status by the time of discharge.) Problem List - Problem List Physical Therapy Problem List: Detail (1. Decreased LE strength 2. Decreased endurance during ambulation 3. Decreased tolerance for stairs) Goals - Goals Physical Therapy Goals: 1. Patient will be independent in a HEP to maintain and improve LE strength for functional activities. 2. Patient will be independent in ascending and descending 10 stairs to be able to use the stairs to her basement after discharge. 3. Patient will be able to ambulate 200 feet independently without an AD without shortness of breath to be able to ambulate in the community. Plan - Plan Physical Therapy Plan: Patient will be seen 2-3x per week, M-F, for therapeutic exercises and activities, gait training, transfer training, and HEP instruction.
--- NOTE | 2019-09-09 14:47 | History & Physical ---
History of Present Illness - Date of Service Date of Service for History & Physical: 09/09/19 - History of Present Illness Admitting Diagnosis: colectomy History of Present Illness: 84 y/o female admitted to swing bed after prolonged hospitalization at [facility] from 08/18/19-09/09/19 for bowel perforation after swallowing a chicken bone that subsequently caused sigmoid colon perforation and underwent open sigmoid colectomy with an enterotomy and segental small bowel resection. 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 2 intraabdominal drains were placed and she was started on TPN. 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 She was on Zosyn for majority of her hospital stay and subsequently changed to daptomycin for VRE coverage. Past medical history includes HTN, adjustment disorder with anxiety, diverticulitis, cancer of the gallbladder. BP:133/70 HR 79 T 37.2C WBC 14 PCP: Dr Quigley Past Medical History - SOCIAL HISTORY Smoking Status: Former smoker Alcohol Use: None - RESPIRATORY Hx Respiratory Disorders: No - CARDIOVASCULAR Hx Cardio Disorders: No Hx Hypertension: Yes - NEURO Hx Neuro Disorders: Yes Hx Neuropathy: Yes (feet) - GI Hx GI Disorders: Yes Hx Abdominal Pain: Yes Hx Diverticulitis: Yes Hx Reflux: Yes Hx Hepatitis/Jaundice: Yes (hep b 1965) Hx Irritable Bowel: Yes Hx Obstructive Bowel: Yes Hx Wt Loss/Wt Gain: Yes Comment:: colectomy - Hx Genitourinary Disorders: No Comment:: frequency during night - ENDOCRINE Hx Endocrine Disorders: No Hx Diabetes: No Hx Thyroid Disease: No - MUSCULOSKELETAL Hx Musculoskeletal Disorders: Yes Hx Arthritis: Yes - PSYCH Hx Psych Problems: Yes Hx Anxiety: Yes - HEMATOLOGY/ONCOLOGY Hx Hematology/Oncology Disorders: Yes Hx Cancer: Yes (gallbladder) Comment:: gall bladder Family Medical History Any Significant Family History?: Yes Hx Cancer: Children Hx Diabetes: Father Hx Heart Disease: Father, Mother H&P Meds/Allergies - Allergies Allergies: Allergies Allergy/AdvReac Type Severity Reaction Status Date / Time citalopram hydrobromide Allergy Severe CONFUSION Unverified 10/28/17 14:54 [From Celexa] nifedipine [From PROCARDIA] Allergy Severe CHF Unverified 10/28/17 14:54 pregabalin [From LYRICA] Allergy Severe SWELLING Unverified 10/28/17 14:54 OF THE FACE hydromorphone HCl Allergy Intermediate BEHAVIORAL Unverified 10/28/17 14:54 [From DILAUDID] CHANGES mirabegron [From Myrbetriq] Allergy Intermediate RASH Unverified 10/28/17 14:54 morphine [MORPHINE] Allergy Unknown BEHAVIORAL Unverified 10/28/17 14:54 CHANGES amitriptyline AdvReac ALTERED Unverified 10/28/17 14:54 MENTAL STATUS carbamazepine AdvReac NAUSEA Unverified 10/28/17 14:54 gabapentin AdvReac DIZZINESS Unverified 10/28/17 14:54 oxcarbazepine AdvReac MUSCLE PAIN Unverified 10/28/17 14:54 oxycodone AdvReac MUSCLE PAIN Unverified 10/28/17 14:54 phenytoin [From Dilantin] AdvReac HYPERSENSIT Unverified 10/28/17 14:54 IVITY potassium chloride AdvReac MUSCLE PAIN Unverified 10/28/17 14:54 - Active Medications Active Medications: Current Medications Alprazolam (Xanax) 0.5 mg PO QHS PRN PRN Reason: ANXIETY Daptomycin (Cubicin) 400 mg IV DAILY [facility] Stop: 09/11/19 10:01 Famotidine (Pepcid Iv) 20 mg IVP BID KATIE Fluconazole (Diflucan) 200 mg PO DAILY [facility] Stop: 09/12/19 10:01 Sodium Acetate 20 meq/ Sodium Phosphate 10 mm/ Potassium Chloride 20 meq/ Potassium Acetate 40 meq/ Potassium Phosphate 10 mm/ Calcium Gluconate 200 mg/ Magnesium Sulfate 10 meq/ Multivitamins/Minerals 10 ml/ Chromium/Copper/Manganese/Seleni/Zn 1 ml/ Folic Acid 1 mg/ Dextrose/Amino Acids/ Fat Emulsion Intravenous/ Sterile Water 2,100.5 mls @ 87.5 mls/hr IV 1900 KATIE Losartan Potassium (Losartan Potassium) 100 mg PO 1200 KATIE Metoprolol Succinate (Toprol Xl) 100 mg PO DAILY [facility] Nystatin () 2 ml PO QID KATIE Octreotide Acetate (Octreotide Acetate) 75 mcg SQ BID [facility] Physical Exam - Vital Signs Vital Signs: Vital Signs - Last 24 Hrs Temp Pulse Resp BP Pulse Ox 09/09/19 11:46 97.7 F 79 17 137/47 99 - General General Appearance: Alert, Oriented x3, Cooperative, No acute distress Limitations: No limitations - Head Head exam: Atraumatic, Normocephalic - Eye Eye exam: Normal appearance, EOMI - ENT ENT exam: Normal exam, Mucous membranes moist - Neck Neck exam: Normal inspection - Respiratory Respiratory exam: Normal lung sounds bilaterally - Cardiovascular Cardiovascular Exam: Regular rate, Normal rhythm, Normal heart sounds Peripheral Pulses: 2+: Radial (R), Radial (L) - GI/Abdominal GI/Abdominal exam: Soft, Normal bowel sounds, Other (2 drains noted, 1 anterior right flank draining bile-like fluid, 1 posterior flank draining serosang). negative: Distended, Tenderness - Extremities Extremities exam: Normal inspection. negative: Pedal edema - Neurological Neurological exam: Alert, CN II-XII intact, Oriented X3 - Psychiatric Psychiatric exam: Flat affect Results - Labs Result Diagrams: 09/13/19 13:00 09/12/19 06:00 Labs Last 24 Hours: Laboratory Results - last 24 hr 09/12/19 06:00 Sodium Cancelled Potassium Cancelled Chloride Cancelled Carbon Dioxide Cancelled Anion Gap Cancelled BUN Cancelled Creatinine Cancelled Estimated GFR Cancelled Random Glucose Cancelled Calcium Cancelled VTE H&P Assessment - Risk for VTE Risk for VTE: Yes Risk Level: Moderate Risk Assessment Date: 09/09/19 Risk Assessment Time: 17:26 VTE Orders Placed or Will Be Placed: Yes Plan - Detailed Diagnosis and Plan (1) Physical deconditioning Current Visit: Yes Status: Acute Base Code: R53.81 - OTHER MALAISE Comment: 09/09/19 - PT/PT for gait training, stability and strengthening (2) Anxiety Current Visit: Yes Status: Acute Base Code: F41.9 - ANXIETY DISORDER, UNSPECIFIED Comment: 09/09/19 - Xanax 0.5mg QHS PRN (3) History of colectomy Current Visit: Yes Status: Acute Base Code: Z90.49 - ACQUIRED ABSENCE OF OTHER SPECIFIED PARTS OF DIGESTIVE TRACT Comment: 09/09/19 - TPN with pharmacy to dose until follow up with surgeon - NPO except oral meds with small sips of water (4) Peritonitis Current Visit: Yes Status: Acute Base Code: K65.9 - PERITONITIS, UNSPECIFIED Comment: 09/09/19 - [address], daily dressing changes - Cubicin 400mg QD x 2 doses and Diflucan 200mg QD x 3 more doses for peritonitis (5) On parenteral nutrition Current Visit: Yes Status: Acute Base Code: Z78.9 - OTHER SPECIFIED HEALTH STATUS Comment: 09/09/19 - NPO - Continue until follow up with surgeon - Pharmacy to dose (6) Hypertension Current Visit: No Status: Acute Base Code: I10 - ESSENTIAL (PRIMARY) HYPERTENSION Comment: 09/09/19 - Metoprolol 100mg QD - Losartan 100mg QD (7) Full code status Current Visit: Yes Status: Acute Base Code: Z78.9 - OTHER SPECIFIED HEALTH STATUS Comment: 09/09/19 full code status (8) DVT prophylaxis Current Visit: Yes Status: Acute Base Code: Z29.9 - ENCOUNTER FOR PROPHYLACTIC MEASURES, UNSPECIFIED Comment: 09/09/19 - NUrsing to encourage frequent ambulation
--- NOTE | 2019-09-09 14:51 | Rehab Evaluation ---
Patient Information - Patient Information Diagnosis: Colectomy Ordered Treatment: OT Evaluate and Treat Status: Initial Evaluation Surgery: Yes Past Medical/Surgical Hx: PAST MEDICAL/SURGICAL HISTORY Past Surgical History gall bladder, c section, hyst, perf bowel, bladder suspension,appy, tonsils, cataract PMH - Respiratory Hx Respiratory Disorders No PMH - Cardiovascular Hx Cardiovascular Disorders No Hx Hypertension Yes PMH - Neuro Hx Neurological Disorders Yes Hx Neuropathy Yes: feet PMH - GI Hx Gastrointestinal Disorders Yes Hx Abdominal Pain Yes Hx Diverticulitis Yes Hx Gastroesophageal Reflux Yes Hx Hepatitis/Jaundice Yes: hep b 1965 Hx Irritable Bowel Yes Hx Obstructive Bowel Yes Hx Weight Loss/Weight Gain Yes Comment: colectomy PMH - Hx Genitourinary Disorders No Comment: frequency during night PMH - Endocrine Hx Endocrine Disorders No Hx Diabetes No Hx Thyroid Disease No PMH - Musculoskeletal Hx Musculoskeletal Disorders Yes Hx Arthritis Yes PMH - Psych Hx Psychiatric Problems Yes Hx Anxiety Yes PMH - Hematology/Oncology Hx Hematology/Oncology Yes Disorders Hx Cancer Yes: gallbladder Comment: gall bladder Premorbid Status: Detail (Patient was independent in cooking, cleaning, and laundry. She also did yardwork such as cutting the lawn and gardening. For ambulation, she did not need to use an AD.) Social History: Detail (Patient lives in a 1-story home with her . There are 3 stairs to enter with no railing. She said that their laundry is in the basement and there is a flight of stairs to get down there with 2 railings. In the bathroom there is a walk-in shower with a shower bench and a hand held shower head but no grab bars. The toilet is raised and there are no grab bars but she said there is something for her to hang onto. She has a walker and cane.) Precautions: [place], Fall - Time With Patient Total Time Spent With Patient (Min): 35 Treatment Procedures: Detail (OT eval low complexity) Subjective Information - Subjective Information Per Patient Objective Data - Pain Pain Present: No - Mental Status Patient Orientation: Oriented x3 - Visual Perception Appears within normal limits for therapeutic activities (Pt wears glasses) - ROM Within normal limits (Antolin UE AROM WNL) - Strength/Tone Within normal limits (Antolin UE strength 4+/5) - Coordination Appears within normal limits for therapeutic activities - Bed Mobility Independent (Ind with supine to sit and sit to supine.) - Transfers Independent (Ind with sit to stand from EOB and toilet heights.) - Balance Balance Sitting: Good Balance Standing: Good - Sensation Intact - Gait Detail (Pt ambulating in hallway with 2 wheeled walker and supervision.) - ADL's/IADL's Detail (Pt able to complete doffing and donning of slipper socks and toileting Indly. She reports she is Ind with donning PJs.) Therapy Assessment - Therapy Assessment Detail (Pt presents with WNL UE strength as well as only requiring supervision for functional mobility, will further assess Ind with showering, dressing and IADLs.) Problem List - Problem List Physical Therapy Problem List: Detail (1. Decreased LE strength 2. Decreased endurance during ambulation 3. Decreased tolerance for stairs) Occupational Therapy Problem List: Detail (1. Need to further assess showering and total body dressing. 2. Need to further assess IADL tasks.) Goals - Goals Physical Therapy Goals: 1. Patient will be independent in a HEP to maintain and improve LE strength for functional activities. 2. Patient will be independent in ascending and descending 10 stairs to be able to use the stairs to her basement after discharge. 3. Patient will be able to ambulate 200 feet independently without an AD without shortness of breath to be able to ambulate in the community. Occupational Therapy Goals: 1. Pt will be safe and Ind with showering and total body dressing. 2. Pt will be Ind with light kitchen task using AD as needed. Prognosis - Prognosis Good Plan - Plan Physical Therapy Plan: Patient will be seen 1x per day, M-F, for therapeutic exercises and activities, gait training, transfer training, and HEP instruction. Occupational Therapy Plan: Pt will be seen 1-3 times per week to address goals as above.
[2019-09-09] MEDS: NYSTATIN 100,000 UNITS/ML 5ML CUP PO SCH ×3 (15:21→23:12)
[2019-09-09] MEDS: POTASSIUM CHLORIDE IV SCH ×14 (20:00)
[2019-09-09] MEDS: [UNRECOGNIZED DRUG - OTHER] IV SCH ×14 (20:00)
[2019-09-09] MEDS: SODIUM PHOS M BASIC D BASIC IV SCH ×14 (20:00)
[2019-09-09] MEDS: SODIUM ACETATE IV SCH ×14 (20:00)
[2019-09-09] MEDS: OCTREOTIDE ACETATE SQ SCH (23:00)
[2019-09-09] MEDS: FAMOTIDINE IV 20 MG/2 ML VIAL IVP SCH (23:04)
[2019-09-10 07:16] LABS: BLOOD UREA NITROGEN 19 mg/dL (8-23); CREATININE 0.6 mg/dL (0.5-0.9); EST GLOMERULAR FILTRATION RATE > 60 mL/min; GLUCOSE,RANDOM 176 mg/dL (74-109)
[2019-09-10] MEDS: FLUCONAZOLE 100 MG TABLET PO SCH (09:36)
[2019-09-10] MEDS: METOPROLOL SUCC 50 MG TABLET PO SCH (09:36)
[2019-09-10] MEDS: NYSTATIN 100,000 UNITS/ML 5ML CUP PO SCH ×3 (09:44→21:22)
[2019-09-10] MEDS: DAPTOMYCIN 500 MG/VIAL IV SCH (09:53)
[2019-09-10] MEDS: FAMOTIDINE IV 20 MG/2 ML VIAL IVP SCH ×2 (09:54→21:22)
[2019-09-10] MEDS: OCTREOTIDE ACETATE SQ SCH ×2 (09:54→21:21)
[2019-09-10] MEDS: LOSARTAN POTASSIUM 100 MG TABLET PO SCH (12:15)
[2019-09-10] MEDS: NOVOLOG FLEXPEN (INSULIN ASPART) 100 UNITS/ML SQ SCH (17:35)
[2019-09-10] MEDS: SODIUM ACETATE IV SCH ×14 (20:54)
[2019-09-10] MEDS: SODIUM PHOS M BASIC D BASIC IV SCH ×14 (20:54)
[2019-09-10] MEDS: [UNRECOGNIZED DRUG - OTHER] IV SCH ×14 (20:54)
[2019-09-10] MEDS: POTASSIUM CHLORIDE IV SCH ×14 (20:54)
[2019-09-11] MEDS: NYSTATIN 100,000 UNITS/ML 5ML CUP PO SCH ×5 (00:58→22:15)
[2019-09-11 06:30] LABS: BLOOD UREA NITROGEN 18 mg/dL (8-23); CREATININE 0.6 mg/dL (0.5-0.9); EST GLOMERULAR FILTRATION RATE > 60 mL/min; GLUCOSE,RANDOM 168 mg/dL (74-109)
[2019-09-11] MEDS: NOVOLOG FLEXPEN (INSULIN ASPART) 100 UNITS/ML SQ SCH ×3 (10:01→17:47)
[2019-09-11] MEDS: FLUCONAZOLE 100 MG TABLET PO SCH (10:03)
[2019-09-11] MEDS: OCTREOTIDE ACETATE SQ SCH ×2 (11:00→22:14)
[2019-09-11] MEDS: FAMOTIDINE IV 20 MG/2 ML VIAL IVP SCH ×2 (11:00→22:15)
[2019-09-11] MEDS: METOPROLOL SUCC 50 MG TABLET PO SCH (11:27)
[2019-09-11] MEDS: DAPTOMYCIN 500 MG/VIAL IV SCH (13:02)
[2019-09-11] MEDS: LOSARTAN POTASSIUM 100 MG TABLET PO SCH (13:03)
[2019-09-11] MEDS: SODIUM ACETATE IV SCH ×14 (22:14)
[2019-09-11] MEDS: [UNRECOGNIZED DRUG - OTHER] IV SCH ×14 (22:14)
[2019-09-11] MEDS: POTASSIUM CHLORIDE IV SCH ×14 (22:14)
[2019-09-11] MEDS: SODIUM PHOS M BASIC D BASIC IV SCH ×14 (22:14)
[2019-09-11] MEDS: ALPRAZOLAM 0.25 MG TABLET PO PRN (22:31)
[2019-09-12 07:05] LABS: ALB/GLOB RATIO 0.8 (1.1-1.8); ALBUMIN 2.9 g/dL (4.0-5.0); ALKALINE PHOSPHATASE 127 U/L (35-104); ALT/SGPT 12 U/L (<33); AST/SGOT 21 U/L (10.0-35.0); BLOOD UREA NITROGEN 18 mg/dL (8-23); CREATININE 0.6 mg/dL (0.5-0.9); EST GLOMERULAR FILTRATION RATE > 60 mL/min; GLUCOSE,RANDOM 167 mg/dL (74-109); TOTAL PROTEIN 6.4 g/dL (6.6-8.7)
[2019-09-12] MEDS: NOVOLOG FLEXPEN (INSULIN ASPART) 100 UNITS/ML SQ SCH ×2 (08:10→12:11)
[2019-09-12] MEDS: FLUCONAZOLE 100 MG TABLET PO SCH (09:08)
[2019-09-12] MEDS: NYSTATIN 100,000 UNITS/ML 5ML CUP PO SCH ×5 (09:08→21:40)
[2019-09-12] MEDS: METOPROLOL SUCC 50 MG TABLET PO SCH (09:09)
[2019-09-12] MEDS: FAMOTIDINE IV 20 MG/2 ML VIAL IVP SCH ×2 (09:09→21:39)
[2019-09-12] MEDS: OCTREOTIDE ACETATE SQ SCH (09:55)
[2019-09-12] MEDS: LOSARTAN POTASSIUM 100 MG TABLET PO SCH (12:12)
--- NOTE | 2019-09-12 13:11 | Occupational Therapy Tx Note ---
Occupational Therapy Tx Note - Treatment Note Tolerated: Fair Total Time Spent With Patient: 45 (ADL) Occupational Therapy Treatment Note: Detail (S: Pt sitting up in chair, finishing meds and agreeable to OT. O: Sit to stand and amb to toilet with supervision. Pt completed toileting Indly and doffed PJ top, bottoms and slip on slippers Indly. Pt amb to shower seat and completed total body showering in sitting and standing with supervision. Pt dried self Indly. Pt donned PJ top and bottom Indly. Pt amb to sink with supervision and completed oral hygiene and combing hair Indly. Pt amb back to chair with supervision and left up in recliner. A: Pt is Ind with showering, dressing and grooming/hygiene although she was very fatigued after OT session.) Occupational Therapy Problem List: Detail (1. Need to further assess showering and total body dressing. 2. Need to further assess IADL tasks.) Occupational Therapy Goals: 1. Pt will be safe and Ind with showering and total body dressing. 2. Pt will be Ind with light kitchen task using AD as needed. Prognosis: Good Occupational Therapy Plan: Pt will be seen 1-3 times per week to address goals as above.
[2019-09-12] MEDS: OCTREOTIDE ACETATE 100 MCG/ML SC SCH (21:40)
[2019-09-12] MEDS: ALPRAZOLAM 0.25 MG TABLET PO PRN (21:47)
[2019-09-12] MEDS: SODIUM PHOS M BASIC D BASIC IV SCH ×14 (23:49)
[2019-09-12] MEDS: SODIUM ACETATE IV SCH ×14 (23:49)
[2019-09-12] MEDS: [UNRECOGNIZED DRUG - OTHER] IV SCH ×14 (23:49)
[2019-09-12] MEDS: POTASSIUM CHLORIDE IV SCH ×14 (23:49)
[2019-09-13 07:08] LABS: BLOOD UREA NITROGEN 20 mg/dL (8-23); CREATININE 0.6 mg/dL (0.5-0.9); EST GLOMERULAR FILTRATION RATE > 60 mL/min; GLUCOSE,RANDOM 162 mg/dL (74-109)
[2019-09-13 07:37] LABS: HEMATOCRIT 31.3 % (35.0-47.0); HEMOGLOBIN 9.6 gm/dl (11.6-16.0); MEAN CELL VOLUME 92.6 fl (81-97); MEAN CORPUSCULAR HEMOGLOBIN 28.4 pg (27-33); MEAN CORPUSCULAR HGB CONC 30.7 g/dl (32-36); MEAN PLATELET VOLUME 12.8 fl (7.4-10.4); PLATELET COUNT 254 K/uL (130-400); RED BLOOD COUNT 3.38 M/uL (3.80-5.40); RED CELL DISTRIBUTION WIDTH 16.4 % (11.5-14.5); WHITE BLOOD COUNT W/O DIFF 11.3 K/uL (4.2-12.2)
[2019-09-13 08:20] LABS: HYPOCHROMIA 1+
[2019-09-13] MEDS: METOPROLOL SUCC 50 MG TABLET PO SCH (09:21)
[2019-09-13] MEDS: FAMOTIDINE IV 20 MG/2 ML VIAL IVP SCH ×2 (09:21→22:13)
[2019-09-13] MEDS: OCTREOTIDE ACETATE 100 MCG/ML SC SCH ×2 (09:21→22:10)
[2019-09-13] MEDS: NYSTATIN 100,000 UNITS/ML 5ML CUP PO SCH ×4 (09:21→22:13)
--- NOTE | 2019-09-13 10:25 | Physical Therapy Tx Note ---
Physical Therapy Tx Note - Treatment Note Tolerated: Fair Total Time Spent With Patient: 25 Physical Therapy Tx Note: Detail (The patient initially had complaints of R LE pain but pain decreased after ambulating. The patient ambulated with IV 350 feet x 2 independently with shortness of breath noted after ambulating. The patient climbed 3 steps with one railing with supervision for safety only. The patient was instructed in LE HEP including seated LAQ, marching, hip adductor squeezes. ankle pumps and standing marching and squats. The patient exhibited shortness of breath after standing exercises and required a rest period. Patient stated she did not feel she is" getting anywhere". Patient was assured she is doing well physically. Patient was more fatigued today after PT treatment. Patient was returned to room with call light within reach.) Physical Therapy Problem List: Detail (1. Decreased LE strength 2. Decreased endurance during ambulation 3. Decreased tolerance for stairs) Physical Therapy Goals: 1. Patient will be independent in a HEP to maintain and improve LE strength for functional activities. 2. Patient will be independent in ascending and descending 10 stairs to be able to use the stairs to her basement after discharge. 3. Patient will be able to ambulate 200 feet independently without an AD without shortness of breath to be able to ambulate in the community. Physical Therapy Plan: Patient will be seen 2-3x per week, M-F, for therapeutic exercises and activities, gait training, transfer training, and HEP instruction.
[2019-09-13] MEDS: LOSARTAN POTASSIUM 100 MG TABLET PO SCH (15:06)
[2019-09-13] MEDS: ALPRAZOLAM 0.25 MG TABLET PO PRN (22:08)
[2019-09-14] MEDS: SODIUM PHOS M BASIC D BASIC IV SCH ×29 (00:14→23:27)
[2019-09-14] MEDS: [UNRECOGNIZED DRUG - OTHER] IV SCH ×14 (00:14)
[2019-09-14] MEDS: POTASSIUM CHLORIDE IV SCH ×14 (00:14)
[2019-09-14] MEDS: SODIUM ACETATE IV SCH ×29 (00:14→23:27)
[2019-09-14 07:24] LABS: BLOOD UREA NITROGEN 21 mg/dL (8-23); CREATININE 0.6 mg/dL (0.5-0.9); EST GLOMERULAR FILTRATION RATE > 60 mL/min; GLUCOSE,RANDOM 163 mg/dL (74-109)
[2019-09-14] MEDS: OCTREOTIDE ACETATE 100 MCG/ML SC SCH ×2 (09:46→22:20)
[2019-09-14] MEDS: FAMOTIDINE IV 20 MG/2 ML VIAL IVP SCH ×2 (09:46→22:20)
[2019-09-14] MEDS: NYSTATIN 100,000 UNITS/ML 5ML CUP PO SCH ×4 (09:46→22:18)
[2019-09-14] MEDS ORDERED: METOPROLOL SUCC 25 MG TAB.ER PO SCH (12:00)
[2019-09-14] MEDS: LOSARTAN POTASSIUM 100 MG TABLET PO SCH (12:02)
--- NOTE | 2019-09-14 12:03 | Occupational Therapy Tx Note ---
Occupational Therapy Tx Note - Treatment Note Tolerated: Good Total Time Spent With Patient: 35 (ther activity) Occupational Therapy Treatment Note: Detail (S: Pt up in chair, ready for therapy. O: Sit to stand and amb 500 feet + while holding IV pole with supervision. Pt had mild shortness of breath and fatigue at end of walk. Pt rested x 5 min on edge of mat table. Pt amb to recumbent bike and she was able to complete 2 min at level 1 at a slow speed and to her tolerance. She reports this improved her right LE pain and her leg felt less tightness. Pt was transported back to room via wheelchair and transferred to [facility]. A: Pt continues to slowly improve her endurance with mobility and functional tasks.) Occupational Therapy Problem List: Detail (1. Need to further assess showering and total body dressing. 2. Need to further assess IADL tasks.) Occupational Therapy Goals: 1. Pt will be safe and Ind with showering and total body dressing. 2. Pt will be Ind with light kitchen task using AD as needed. Prognosis: Good Occupational Therapy Plan: Pt will be seen 1-3 times per week to address goals as above.
[2019-09-14] MEDS: METOPROLOL SUCC 50 MG TABLET PO SCH (12:06)
--- NOTE | 2019-09-14 20:26 | Physician Progress Note ---
Subjective - Date Date of Progress Note: 09/14/19 - Admitting Diagnosis Diagnosis: colectomy - Subjective Events since last encounter: patient in swing bed and getting stronger and on TPN till she see her surgeon Dr. Aaron next week. Patient had a chicken bone caught in her colon which perforated the colon with peritonitis and she has two abdominal drains and TPN and seeing her surgeon Dr Aaron on sep 20 per family. She is NPO till than. today nurse was worried about her BP being to low and so dropped her toprol from 100 mg to 25 mg per day. Will watch her BP and she may need that increased Nursing Care Plan Problem List Activity Intolerance (Swing Bed) Start: 09/09/19 13:22 Freq: Status: Active Protocol: [place] 09/09[place]19 13:[place] [facility] [place]Rec[place] 09/09/19 13:[place] [facility] [place] Anxiety Start: 09/11/19 13:25 Freq: Status: Active Protocol: Created 09/11/19 13:25 MMT (Rec: 09/11/19 13:25 MMT ASTS-1) Impaired Skin Integrity Start: 09/11/19 13:25 Freq: Status: Active Protocol: Created 09/11/19 13:25 MMT (Rec: 09/11/19 13:25 MMT ASTS-1) Knowledge Deficit (Swing Bed) Start: 09/09/19 13:22 Freq: Status: Active Protocol: Created 09/09/19 13:22 [facility] [place]Rec: 09/09/19 13:22 [facility] [place] Pain (Swing Bed) Start: 09/09/19 13:22 Freq: Status: Active Protocol: Created 09/09/19 13:22 [facility] [place]Rec: 09/09/19 13:22 [facility] [place] - Subjective Detail Comment: No additional complaints except as noted below Constitutional: Reports: As per HPI ENT: Reports: As per HPI Cardiovascular: Reports: As per HPI Gastrointestinal: Reports: As per HPI Genitourinary: Reports: As per HPI Musculoskeletal: Reports: As per HPI Skin: Reports: As per HPI Neurological: Reports: As per HPI General - Cognitive Patterns Speech: Normal Thought Process: Intact Thought Content: Normal - Communication Select best description of speech pattern: Clear Speech Ability to express ideas and wants: Understood Understanding verbal content: Understands - Mood and Behavior Patterns Appearance: Well Groomed Mood: Normal Attitude: Cooperative Motor Activity: Calm Affect: Appropriate Hallucinations: Denies - Physical Functioning Activity Level: Up with assist x1 Turning: Self ad natacha ROM Ability: Within Normal Limits, Moves all extremities Assistive Devices: None Ambulation Ability: Independent Bed Mobility: Independent Transfer Ability: Independent Bathing Ability: Independent Personal Hygiene: Independent Dressing Ability: Independent Eating (Feeding) Ability: Independent Toileting Ability: Independent Administer Own Medication: Independent - Continence Bowel Pattern: Normal for Patient Bladder Pattern: Normal Urinary Incontinence: Urge Meds/Allergies - Allergies Allergies Allergy/AdvReac Type Severity Reaction Status Date / Time citalopram hydrobromide Allergy Severe CONFUSION Unverified 10/28/17 14:54 [From Celexa] nifedipine [From PROCARDIA] Allergy Severe CHF Unverified 10/28/17 14:54 pregabalin [From LYRICA] Allergy Severe SWELLING Unverified 10/28/17 14:54 OF THE FACE hydromorphone HCl Allergy Intermediate BEHAVIORAL Unverified 10/28/17 14:54 [From DILAUDID] CHANGES mirabegron [From Myrbetriq] Allergy Intermediate RASH Unverified 10/28/17 14:54 morphine [MORPHINE] Allergy Unknown BEHAVIORAL Unverified 10/28/17 14:54 CHANGES amitriptyline AdvReac ALTERED Unverified 10/28/17 14:54 MENTAL STATUS carbamazepine AdvReac NAUSEA Unverified 10/28/17 14:54 gabapentin AdvReac DIZZINESS Unverified 10/28/17 14:54 oxcarbazepine AdvReac MUSCLE PAIN Unverified 10/28/17 14:54 oxycodone AdvReac MUSCLE PAIN Unverified 10/28/17 14:54 phenytoin [From Dilantin] AdvReac HYPERSENSIT Unverified 10/28/17 14:54 IVITY potassium chloride AdvReac MUSCLE PAIN Unverified 10/28/17 14:54 - Active Medications Current Medications Alprazolam (Xanax) 0.5 mg PO QHS PRN PRN Reason: ANXIETY Last Admin: 09/13/19 22:08 Dose: 0.25 mg Documented by: Famotidine (Pepcid Iv) 20 mg IVP BID KATIE Last Admin: 09/14/19 09:46 Dose: 20 mg Documented by: Sodium Chloride 5 meq/ Sodium Acetate 20 meq/ Sodium Phosphate 10 mm/ Potassium Chloride 20 meq/ Potassium Acetate 30 meq/ Potassium Phosphate 10 mm/ Calcium Gluconate 200 mg/ Magnesium Sulfate 10 meq/ Multivitamins/Minerals 10 ml/ Chromium/Copper/Manganese/Seleni/Zn 1 ml/ Folic Acid 1 mg/ Dextrose/Amino Acids/ Fat Emulsion Intravenous/ Sterile Water 2,100.5 mls @ 87.5 mls/hr IV 1900 [facility] Losartan Potassium (Losartan Potassium) 100 mg PO 1200 [facility] Last Admin: 09/14/19 12:02 Dose: 100 mg Documented by: Metoprolol Succinate (Toprol Xl) 25 mg PO DAILY [facility] Last Admin: 09/14/19 12:02 Dose: 25 mg Documented by: Nystatin () 5 ml PO QID [facility] Last Admin: 09/14/19 18:24 Dose: 5 ml Documented by: Octreotide Acetate (Octreotide Acetate) 100 mcg SC BID [facility] Last Admin: 09/14/19 09:46 Dose: 100 mcg Documented by: Objective - Vital Signs Vital Signs: Vital Signs - Last 24 Hrs Temp Pulse Resp BP Pulse Ox 09/14/19 19:28 97.9 F 95 H 18 134/50 96 09/14/19 08:00 98.0 F 96 H 16 110/58 97 - General General Appearance: Alert, Oriented x3, Cooperative, No acute distress Limitations: No limitations - Head Head exam: Atraumatic, Normocephalic - Eye Eye exam: Normal appearance, EOMI - ENT ENT exam: Normal exam, Mucous membranes moist Ear exam: Normal external inspection. negative: External canal tenderness Nasal Exam: Normal inspection. negative: Discharge, Sinus tenderness Mouth exam: Normal external inspection, Tongue normal Teeth exam: Normal inspection. negative: Dental caries Throat exam: Normal inspection. negative: Tonsillar erythema, Tonsillar exudate - Neck Neck exam: Normal inspection - Respiratory Respiratory exam: Normal lung sounds bilaterally - Cardiovascular Cardiovascular Exam: Regular rate, Normal rhythm, Normal heart sounds Peripheral Pulses: 2+: Radial (R), Radial (L) - GI/Abdominal GI/Abdominal exam: Soft, Normal bowel sounds, Other (2 drains noted, 1 anterior right flank draining bile-like fluid, 1 posterior flank draining serosang). negative: Distended, Tenderness - Extremities Extremities exam: Normal inspection. negative: Pedal edema - Neurological Neurological exam: Alert, CN II-XII intact, Oriented X3 - Psychiatric Psychiatric exam: Flat affect H&P Results - Labs Result Diagrams: 09/13/19 06:30 09/14/19 06:25 Labs Last 24 Hours: Laboratory Results - last 24 hr 09/14/19 09/14/19 09/14/19 06:25 06:25 10:54 Sodium 136 Potassium 4.6 H Chloride 98 Carbon Dioxide 27.0 Anion Gap 11.0 BUN 21 Creatinine 0.6 Estimated GFR > 60 POC Glucose 167 H Random Glucose 163 H Calcium 9.0 Magnesium 2.0 Discharge Potential - Discharge Needs Community Services Used Prior to Admission: None Patient Discharge Plan Description: Return Home Community Services Needed at Discharge: Home Health Nurse Plan - Swing Bed Certification Initial Certification Due: 09/09/19 14 Day Re-Cert Due: 09/23/19 44 Day Re-Cert Due: 10/23/19 74 Day Re-Cert Due: 11/22/19 - Detailed Diagnosis and Plan (1) On parenteral nutrition Current Visit: Yes Status: Acute Base Code: Z78.9 - OTHER SPECIFIED HEALTH STATUS Comment: 09/09/19 - NPO - Continue until follow up with surgeon - Pharmacy to dose (2) Peritonitis Current Visit: Yes Status: Acute Base Code: K65.9 - PERITONITIS, UNSPECIFIED Comment: 09/09/19 - [address], daily dressing changes - Cubicin 400mg QD x 2 doses and Diflucan 200mg QD x 3 more doses for peritonitis (3) Physical deconditioning Current Visit: Yes Status: Acute Base Code: R53.81 - OTHER MALAISE Comment: 09/09/19 - PT/PT for gait training, stability and strengthening (4) Hypertension Current Visit: No Status: Acute Base Code: I10 - ESSENTIAL (PRIMARY) HYPERTENSION Comment: 09/09/19 - Metoprolol 100mg QD - Losartan 100mg QD
[2019-09-14] MEDS: ALPRAZOLAM 0.25 MG TABLET PO PRN (22:15)
[2019-09-14] MEDS: SODIUM CHLORIDE IV SCH ×15 (23:27)
[2019-09-14] MEDS: [UNRECOGNIZED DRUG - OTHER] IV SCH ×15 (23:27)
[2019-09-15 07:54] LABS: BLOOD UREA NITROGEN 23 mg/dL (8-23); CREATININE 0.7 mg/dL (0.5-0.9); EST GLOMERULAR FILTRATION RATE > 60 mL/min; GLUCOSE,RANDOM 144 mg/dL (74-109)
[2019-09-15] MEDS: METOPROLOL SUCC 50 MG TABLET PO SCH (09:20)
[2019-09-15] MEDS: OCTREOTIDE ACETATE 100 MCG/ML SC SCH ×2 (10:58→21:32)
[2019-09-15] MEDS: NYSTATIN 100,000 UNITS/ML 5ML CUP PO SCH ×4 (10:58→21:31)
--- NOTE | 2019-09-15 10:58 | Physical Therapy Tx Note ---
Physical Therapy Tx Note - Treatment Note Tolerated: Good Total Time Spent With Patient: 35 Physical Therapy Tx Note: Detail (Patient states she was very short of breath this morning with walking a short distance, after taking medication it's better. Patient was reclined in chair upon BARIATRIC PROGRAM COORDINATOR arrival. Patient transferred sit to and from stand with SBA x1. Patient ambulated 10 feet with pushing IV pole SBA x1. Patient transferred sit to and from stand SBA x1. Patient ambulated 577 feet with pushing IV pole SBA x1. Patient transferred sit to and from stand SBA x1. Patient ambulated 55 feet with pushing IV pole SBA x1. Patient performed 2 [id number] on the recumbent bike at L1 with a rest break between. Patient ambulated 30 feet with pushing IV pole with supervision. Patient performed the following exercises standing: marching x10, heel raises x10, toe raises x10, and hamstring curls x5. Patient required 1 seated rest break with standing exercises. Patient transferred sit to and from stand SBA x1. Patient ambulated 5 feet with pushing IV pole with supervision Patient tolerated treatment well. Patient displays shortness of breath with ambulation, standing exercises, and recumbent bike. Patient reports feeling tired after treatment. Patient was left seated in chair with call light within reach.) Physical Therapy Problem List: Detail (1. Decreased LE strength 2. Decreased endurance during ambulation 3. Decreased tolerance for stairs) Physical Therapy Goals: 1. Patient will be independent in a HEP to maintain and improve LE strength for functional activities. 2. Patient will be independent in ascending and descending 10 stairs to be able to use the stairs to her basement after discharge. 3. Patient will be able to ambulate 200 feet independently without an AD without shortness of breath to be able to ambulate in the community. Prognosis: Good Physical Therapy Plan: Patient will be seen 2-3x per week, M-F, for therapeutic exercises and activities, gait training, transfer training, and HEP instruction.
[2019-09-15] MEDS: FAMOTIDINE IV 20 MG/2 ML VIAL IVP SCH ×2 (11:12→21:32)
[2019-09-15] MEDS: LOSARTAN POTASSIUM 100 MG TABLET PO SCH (11:26)
[2019-09-15] MEDS: HEPARIN SODIUM FLUSH 100 UNITS/ML SYR 5ML IV SCH (21:37)
[2019-09-15] MEDS: 0.9 % SODIUM CHLORIDE 10ML SYR IVP SCH (21:39)
[2019-09-15] MEDS: [UNRECOGNIZED DRUG - OTHER] IV SCH ×15 (21:41)
[2019-09-15] MEDS: SODIUM ACETATE IV SCH ×15 (21:41)
[2019-09-15] MEDS: SODIUM CHLORIDE IV SCH ×15 (21:41)
[2019-09-15] MEDS: SODIUM PHOS M BASIC D BASIC IV SCH ×15 (21:41)
[2019-09-15] MEDS: ALPRAZOLAM 0.25 MG TABLET PO PRN (22:54)
[2019-09-16 06:47] LABS: BLOOD UREA NITROGEN 23 mg/dL (8-23); CREATININE 0.7 mg/dL (0.5-0.9); EST GLOMERULAR FILTRATION RATE > 60 mL/min; GLUCOSE,RANDOM 153 mg/dL (74-109)
[2019-09-16] MEDS: METOPROLOL SUCC 50 MG TABLET PO SCH (10:03)
[2019-09-16] MEDS: NYSTATIN 100,000 UNITS/ML 5ML CUP PO SCH ×4 (10:03→21:13)
[2019-09-16] MEDS: OCTREOTIDE ACETATE 100 MCG/ML SC SCH ×2 (10:12→21:13)
[2019-09-16] MEDS: HEPARIN SODIUM FLUSH 100 UNITS/ML SYR 5ML IV SCH ×2 (10:13→21:12)
[2019-09-16] MEDS: 0.9 % SODIUM CHLORIDE 10ML SYR IVP SCH ×2 (10:14→21:12)
[2019-09-16] MEDS: FAMOTIDINE IV 20 MG/2 ML VIAL IVP SCH ×2 (10:22→21:13)
--- NOTE | 2019-09-16 11:56 | Occupational Therapy Tx Note ---
Occupational Therapy Tx Note - Treatment Note Tolerated: Good Total Time Spent With Patient: 35 (ther activity) Occupational Therapy Treatment Note: Detail (S: Pt up in chair with spouse and nursing present. O: Sit to stand and amb 500 feet+ while holding IV pole. Pt rested on mat table for 3 minutes and then amb to recumbent bike. She completed 4 min at level 1, rested x 4 min and completed 1 min at level 1 before becoming too fatigued to continue. Pt rested several minutes and then amb 250 feet while pushing IV pole, rested 3 min and amb 250 feet+ back to room with IV pole. A: Pt continues to slowly improve overall endurance and mobility) Occupational Therapy Problem List: Detail (1. Need to further assess showering and total body dressing. 2. Need to further assess IADL tasks.) Occupational Therapy Goals: 1. Pt will be safe and Ind with showering and total body dressing. 2. Pt will be Ind with light kitchen task using AD as needed. Prognosis: Good Occupational Therapy Plan: Pt will be seen 1-3 times per week to address goals as above.
[2019-09-16] MEDS: LOSARTAN POTASSIUM 100 MG TABLET PO SCH (12:28)
[2019-09-16] MEDS: SODIUM PHOS M BASIC D BASIC IV SCH ×15 (20:00)
[2019-09-16] MEDS: SODIUM CHLORIDE IV SCH ×15 (20:00)
[2019-09-16] MEDS: [UNRECOGNIZED DRUG - OTHER] IV SCH ×15 (20:00)
[2019-09-16] MEDS: SODIUM ACETATE IV SCH ×15 (20:00)
[2019-09-16] MEDS: ALPRAZOLAM 0.25 MG TABLET PO PRN (23:36)
[2019-09-17 06:50] LABS: BLOOD UREA NITROGEN 23 mg/dL (8-23); CREATININE 0.7 mg/dL (0.5-0.9); EST GLOMERULAR FILTRATION RATE > 60 mL/min; GLUCOSE,RANDOM 147 mg/dL (74-109)
[2019-09-17] MEDS: 0.9 % SODIUM CHLORIDE 10ML SYR IVP SCH ×2 (09:23→22:04)
[2019-09-17] MEDS: NYSTATIN 100,000 UNITS/ML 5ML CUP PO SCH ×4 (09:23→22:03)
[2019-09-17] MEDS: HEPARIN SODIUM FLUSH 100 UNITS/ML SYR 5ML IV SCH ×2 (09:23→22:04)
[2019-09-17] MEDS: METOPROLOL SUCC 50 MG TABLET PO SCH (09:25)
[2019-09-17] MEDS: FAMOTIDINE IV 20 MG/2 ML VIAL IVP SCH ×2 (09:25→22:05)
[2019-09-17] MEDS: OCTREOTIDE ACETATE 100 MCG/ML SC SCH ×2 (09:28→22:05)
[2019-09-17] MEDS: LOSARTAN POTASSIUM 100 MG TABLET PO SCH (13:04)
[2019-09-17] MEDS: ALPRAZOLAM 0.25 MG TABLET PO PRN (22:03)
[2019-09-17] MEDS: [UNRECOGNIZED DRUG - OTHER] IV SCH ×15 (22:04)
[2019-09-17] MEDS: SODIUM ACETATE IV SCH ×15 (22:04)
[2019-09-17] MEDS: SODIUM PHOS M BASIC D BASIC IV SCH ×15 (22:04)
[2019-09-17] MEDS: SODIUM CHLORIDE IV SCH ×15 (22:04)
[2019-09-18 06:23] LABS: BLOOD UREA NITROGEN 23 mg/dL (8-23); CREATININE 0.6 mg/dL (0.5-0.9); EST GLOMERULAR FILTRATION RATE > 60 mL/min; GLUCOSE,RANDOM 154 mg/dL (74-109)
[2019-09-18] MEDS: 0.9 % SODIUM CHLORIDE 10ML SYR IVP SCH ×2 (09:24→21:57)
[2019-09-18] MEDS: OCTREOTIDE ACETATE 100 MCG/ML SC SCH ×2 (09:24→21:58)
[2019-09-18] MEDS: HEPARIN SODIUM FLUSH 100 UNITS/ML SYR 5ML IV SCH ×2 (09:24→21:58)
[2019-09-18] MEDS: NYSTATIN 100,000 UNITS/ML 5ML CUP PO SCH ×4 (09:24→21:58)
[2019-09-18] MEDS: FAMOTIDINE IV 20 MG/2 ML VIAL IVP SCH ×2 (09:25→21:59)
[2019-09-18] MEDS: METOPROLOL SUCC 50 MG TABLET PO SCH (09:25)
[2019-09-18] MEDS: LOSARTAN POTASSIUM 100 MG TABLET PO SCH (13:09)
[2019-09-18] MEDS: SODIUM ACETATE IV SCH ×15 (21:57)
[2019-09-18] MEDS: [UNRECOGNIZED DRUG - OTHER] IV SCH ×15 (21:57)
[2019-09-18] MEDS: SODIUM PHOS M BASIC D BASIC IV SCH ×15 (21:57)
[2019-09-18] MEDS: SODIUM CHLORIDE IV SCH ×15 (21:57)
[2019-09-18] MEDS: ALPRAZOLAM 0.25 MG TABLET PO PRN (23:38)
[2019-09-19 09:13] LABS: ALB/GLOB RATIO 0.9 (1.1-1.8); ALKALINE PHOSPHATASE 114 U/L (35-104); ALT/SGPT 10 U/L (<33); AST/SGOT 18 U/L (10.0-35.0); BLOOD UREA NITROGEN 24 mg/dL (8-23); CREATININE 0.6 mg/dL (0.5-0.9); EST GLOMERULAR FILTRATION RATE > 60 mL/min; GLUCOSE,RANDOM 139 mg/dL (74-109); TOTAL PROTEIN 6.3 g/dL (6.6-8.7); TRIGLYCERIDES 246 mg/dL (<150)
[2019-09-19] MEDS: FAMOTIDINE IV 20 MG/2 ML VIAL IVP SCH ×2 (09:51→22:29)
[2019-09-19] MEDS: NYSTATIN 100,000 UNITS/ML 5ML CUP PO SCH ×4 (09:52→22:09)
[2019-09-19] MEDS: HEPARIN SODIUM FLUSH 100 UNITS/ML SYR 5ML IV SCH ×2 (09:52→22:04)
[2019-09-19] MEDS: 0.9 % SODIUM CHLORIDE 10ML SYR IVP SCH ×2 (09:52→22:03)
[2019-09-19] MEDS: OCTREOTIDE ACETATE 100 MCG/ML SC SCH ×2 (09:52→21:50)
[2019-09-19] MEDS: METOPROLOL SUCC 50 MG TABLET PO SCH (09:52)
--- NOTE | 2019-09-19 11:11 | Occupational Therapy Tx Note ---
Occupational Therapy Tx Note - Treatment Note Tolerated: Good Total Time Spent With Patient: 45 (ADL) Occupational Therapy Treatment Note: Detail (S: Pt up in recliner, ready for showering. O: Pt amb to shower seat with IV pole Indly. Pt doffed PJ top, bottoms and slippers Indly. Drain and IV sites covered with wrap per OT. Pt completed washing hair and total body showering in sitting and standing Indly with mild fatigue and shortness of breath at times. Pt dried self Indly. Pt donned undershirt, PJ top, PJ bottoms and slippers Indly. Pt completed combing hair Indly. A: Pt is Ind with showering and dressing after drain and IV sites covered. She continues with mild fatigue and shortness of breath although it is much improved.) Occupational Therapy Problem List: Detail (1. Need to further assess showering and total body dressing. 2. Need to further assess IADL tasks.) Occupational Therapy Goals: 1. Pt will be safe and Ind with showering and total body dressing. 2. Pt will be Ind with light kitchen task using AD as needed. Prognosis: Good Occupational Therapy Plan: Pt will be seen 1-3 times per week to address goals as above.
[2019-09-19] MEDS: LOSARTAN POTASSIUM 100 MG TABLET PO SCH (11:54)
[2019-09-19] MEDS: ALPRAZOLAM 0.25 MG TABLET PO PRN ×2 (21:18→23:19)
[2019-09-19] MEDS: [UNRECOGNIZED DRUG - OTHER] IV SCH ×15 (22:09)
[2019-09-19] MEDS: SODIUM ACETATE IV SCH ×15 (22:09)
[2019-09-19] MEDS: SODIUM CHLORIDE IV SCH ×15 (22:09)
[2019-09-20 07:07] LABS: BLOOD UREA NITROGEN 22 mg/dL (8-23); CREATININE 0.6 mg/dL (0.5-0.9); EST GLOMERULAR FILTRATION RATE > 60 mL/min; GLUCOSE,RANDOM 139 mg/dL (74-109)
[2019-09-20] MEDS: NYSTATIN 100,000 UNITS/ML 5ML CUP PO SCH ×4 (09:38→23:10)
[2019-09-20] MEDS: OCTREOTIDE ACETATE 100 MCG/ML SC SCH ×2 (09:39→23:09)
[2019-09-20] MEDS: METOPROLOL SUCC 50 MG TABLET PO SCH (09:43)
[2019-09-20] MEDS: HEPARIN SODIUM FLUSH 100 UNITS/ML SYR 5ML IV SCH ×2 (09:43→23:09)
[2019-09-20] MEDS: 0.9 % SODIUM CHLORIDE 10ML SYR IVP SCH ×2 (09:44→23:09)
[2019-09-20] MEDS: FAMOTIDINE IV 20 MG/2 ML VIAL IVP SCH ×2 (09:52→23:09)
[2019-09-20] MEDS: LOSARTAN POTASSIUM 100 MG TABLET PO SCH (13:03)
[2019-09-20] MEDS: ALPRAZOLAM 0.25 MG TABLET PO PRN (23:10)
[2019-09-20] MEDS: [UNRECOGNIZED DRUG - OTHER] IV SCH ×15 (23:10)
[2019-09-20] MEDS: SODIUM ACETATE IV SCH ×15 (23:10)
[2019-09-20] MEDS: SODIUM CHLORIDE IV SCH ×15 (23:10)
[2019-09-21] MEDS: ALPRAZOLAM 0.25 MG TABLET PO PRN ×2 (00:50→22:16)
[2019-09-21 07:32] LABS: BLOOD UREA NITROGEN 21 mg/dL (8-23); CREATININE 0.6 mg/dL (0.5-0.9); EST GLOMERULAR FILTRATION RATE > 60 mL/min; GLUCOSE,RANDOM 145 mg/dL (74-109)
--- NOTE | 2019-09-21 10:11 | Physician Progress Note ---
Subjective - Date Date of Progress Note: 09/21/19 - Admitting Diagnosis Diagnosis: colectomy - Subjective Nursing Care Plan Problem List Activity Intolerance (Swing Bed) Start: 09/09/19 13:22 Freq: Status: Active Protocol: Created 09/09/19 13:22 KM (Rec: 09/09/19 13:22 [facility] ASTS-1) Altered Thought Process (Fall Risk) Start: 09/17/19 09:06 Freq: Status: Active Protocol: Created 09/17/19 09:06 K[facility] (Rec: 09/17/19 09:06 [facility] ASTS-1) Anxiety Start: 09/11/19 13:25 Freq: Status: Active Protocol: Created 09/11/19 13:25 MMT (Rec: 09/11/19 13:25 MMT ASTS-1) Impaired Mobility (Fall Risk) Start: 09/17/19 09:06 Freq: Status: Active Protocol: Created 09/17/19 09:06 [facility] (Rec: 09/17/19 09:06 [facility] ASTS-1) Impaired Skin Integrity Start: 09/11/19 13:25 Freq: Status: Active Protocol: Created 09/11/19 13:25 MMT (Rec: 09/11/19 13:25 MMT ASTS-1) Knowledge Deficit (Swing Bed) Start: 09/09/19 13:22 Freq: Status: Active Protocol: Created 09/09/19 13:22 [facility] (Rec: 09/09/19 13:22 [facility] ASTS-1) Pain (Swing Bed) Start: 09/09/19 13:22 Freq: Status: Active Protocol: Created 09/09/19 13:22 [facility] (Rec: 09/09/19 13:22 [facility] ASTS-1) Risk for Injury (Fall Risk) Start: 09/17/19 09:06 Freq: Status: Active Protocol: Created 09/17/19 09:06 [facility] (Rec: 09/17/19 09:06 [facility] ASTS-1) Subjective: Patient has no concerns at this time. She had a follow-up appointment with Dr. Garcia yesterday, at which she was cleared to start a full liquid diet. Director Nurses' Registry to begin calorie counting and will adjust TPN after calories rise over 500 PO intake. She also had the drain removed from the right flank. The drain on the right anterior abdomen remains, and has been draining a brown, odorous fluid. Dr. Garcia wishes to continue monitoring drainage at this time. Patient has noted continued oral thrush despite Diflucan and oral nystatin. Oral culture pending. Patient has been going down to PT daily to help improve strength and endurance as well. - Subjective Detail Comment: No additional complaints except as noted below Constitutional: Reports: As per HPI Eyes: Reports: As per HPI ENT: Reports: Other (oral thrush) Respiratory: Reports: As per HPI Cardiovascular: Reports: As per HPI Endocrine: Reports: As per HPI Gastrointestinal: Reports: Other (drain on RLQ) Genitourinary: Reports: As per HPI Musculoskeletal: Reports: As per HPI Skin: Reports: As per HPI Neurological: Reports: As per HPI Psychiatric: Reports: As per HPI Hematological/Lymphatic: Reports: As per HPI General - Cognitive Patterns Speech: Normal Thought Process: Intact Thought Content: Normal - Communication Select best description of speech pattern: Clear Speech Ability to express ideas and wants: Understood Understanding verbal content: Understands - Mood and Behavior Patterns Appearance: Well Groomed Mood: Normal Attitude: Cooperative Motor Activity: Calm Affect: Appropriate Hallucinations: Denies - Physical Functioning Activity Level: Up with assist x1 Turning: Self ad natacha ROM Ability: Within Normal Limits, Moves all extremities Assistive Devices: None Ambulation Ability: Independent Bed Mobility: Independent Transfer Ability: Independent Bathing Ability: Independent Personal Hygiene: Independent Dressing Ability: Independent Eating (Feeding) Ability: Independent Toileting Ability: Independent Administer Own Medication: Independent - Continence Bowel Pattern: Normal for Patient Bladder Pattern: Normal Urinary Incontinence: Urge Meds/Allergies - Allergies Allergies Allergy/AdvReac Type Severity Reaction Status Date / Time citalopram hydrobromide Allergy Severe CONFUSION Unverified 10/28/17 14:54 [From Celexa] nifedipine [From PROCARDIA] Allergy Severe CHF Unverified 10/28/17 14:54 pregabalin [From LYRICA] Allergy Severe SWELLING Unverified 10/28/17 14:54 OF THE FACE hydromorphone HCl Allergy Intermediate BEHAVIORAL Unverified 10/28/17 14:54 [From DILAUDID] CHANGES mirabegron [From Myrbetriq] Allergy Intermediate RASH Unverified 10/28/17 14:54 morphine [MORPHINE] Allergy Unknown BEHAVIORAL Unverified 10/28/17 14:54 CHANGES amitriptyline AdvReac ALTERED Unverified 10/28/17 14:54 MENTAL STATUS carbamazepine AdvReac NAUSEA Unverified 10/28/17 14:54 gabapentin AdvReac DIZZINESS Unverified 10/28/17 14:54 oxcarbazepine AdvReac MUSCLE PAIN Unverified 10/28/17 14:54 oxycodone AdvReac MUSCLE PAIN Unverified 10/28/17 14:54 phenytoin [From Dilantin] AdvReac HYPERSENSIT Unverified 10/28/17 14:54 IVITY potassium chloride AdvReac MUSCLE PAIN Unverified 10/28/17 14:54 - Active Medications Current Medications Alprazolam (Xanax) 0.5 mg PO QHS PRN PRN Reason: ANXIETY Last Admin: 09/21/19 00:50 Dose: 0.25 mg Documented by: Famotidine (Pepcid Iv) 20 mg IVP BID [facility] Last Admin: 09/20/19 23:09 Dose: 20 mg Documented by: Heparin Sodium (Porcine) () 500 unit IV BID [facility] Last Admin: 09/20/19 23:09 Dose: 500 unit Documented by: Sodium Chloride 35 meq/ Sodium Acetate 25 meq/ Sodium Phosphate 10 mm/ Potassium Chloride 20 meq/ Potassium Acetate 30 meq/ Potassium Phosphate 10 mm/ Calcium Gluconate 200 mg/ Magnesium Sulfate 10 meq/ Multivitamins/Minerals 10 ml/ Chr omium/Copper/Manganese/Seleni/Zn 1 ml/ Folic Acid 1 mg/ Dextrose/Amino Acids/ Fat Emulsion Intravenous/ Sterile Water 2,110.5 mls @ 87.5 mls/hr IV 1900 [facility] Last Admin: 09/20/19 23:10 Dose: 87.5 mls/hr Documented by: Losartan Potassium (Losartan Potassium) 100 mg PO 1200 [facility] Last Admin: 09/20/19 13:03 Dose: Not Given Documented by: Metoprolol Succinate (Toprol Xl) 100 mg PO DAILY [facility] Last Admin: 09/20/19 09:43 Dose: 100 mg Documented by: Nystatin () 5 ml PO QID [facility] Last Admin: 09/20/19 23:10 Dose: 5 ml Documented by: Octreotide Acetate (Octreotide Acetate) 100 mcg SC BID [facility] Last Admin: 09/20/19 23:09 Dose: 100 mcg Documented by: Sodium Chloride () 10 ml IVP Q12H KATIE Last Admin: 09/20/19 23:09 Dose: 10 ml Documented by: Objective - Vital Signs Vital Signs: Vital Signs - Last 24 Hrs Temp Pulse Resp BP Pulse Ox 09/21/19 09:22 97.8 F 94 H 16 119/36 96 09/20/19 20:00 97.6 F 88 18 132/44 95 - General General Appearance: Alert, Oriented x3, Cooperative, No acute distress Limitations: No limitations - Head Head exam: Atraumatic, Normocephalic - Eye Eye exam: Normal appearance, EOMI - ENT ENT exam: Normal exam, Mucous membranes moist, Normal external ear exam Ear exam: Normal external inspection. negative: External canal tenderness Nasal Exam: Normal inspection. negative: Discharge, Sinus tenderness Mouth exam: Tongue elevation (lacy white patches on tongue) Teeth exam: Normal inspection. negative: Dental caries Throat exam: Normal inspection. negative: Tonsillar erythema, Tonsillar exudate - Neck Neck exam: Normal inspection - Respiratory Respiratory exam: Normal lung sounds bilaterally - Cardiovascular Cardiovascular Exam: Regular rate, Normal rhythm, Normal heart sounds Peripheral Pulses: 2+: Radial (R), Radial (L) - GI/Abdominal GI/Abdominal exam: Soft, Normal bowel sounds, Other (drain located on RLQ draining brown odorous fluid). negative: Distended, Tenderness - Rectal Rectal exam: Deferred - exam: Deferred - Extremities Extremities exam: Normal inspection. negative: Pedal edema - Neurological Neurological exam: Alert, Normal gait, Oriented X3 - Psychiatric Psychiatric exam: Normal affect, Normal mood - Skin Skin exam: Normal color H&P Results - Labs Result Diagrams: 09/13/19 06:30 09/21/19 06:37 Labs Last 24 Hours: Laboratory Results - last 24 hr 09/20/19 09/21/19 09/21/19 20:27 06:37 06:37 Sodium 137 Potassium 4.5 Chloride 100 Carbon Dioxide 26.0 Anion Gap 11.0 BUN 21 Creatinine 0.6 Estimated GFR > 60 POC Glucose 132 H Random Glucose 145 H Calcium 9.4 Magnesium 2.0 Discharge Potential - Discharge Needs Community Services Used Prior to Admission: None Patient Discharge Plan Description: Return Home Community Services Needed at Discharge: Home Health Nurse Plan - Swing Bed Certification Initial Certification Due: 09/09/19 14 Day Re-Cert Due: 09/23/19 44 Day Re-Cert Due: 10/23/19 74 Day Re-Cert Due: 11/22/19 - Detailed Diagnosis and Plan (1) On parenteral nutrition Current Visit: Yes Status: Acute Base Code: Z78.9 - OTHER SPECIFIED HEALTH STATUS Comment: 09/21/19 - Full liquid diet - Pharmacy to dose - Begin calorie count, decrease TPN once daily caloric intake >500 - Advance diet per surgeon, Dr. Garcia. Next follow-up scheduled 10/04/19 (2) History of colectomy Current Visit: Yes Status: Acute Base Code: Z90.49 - ACQUIRED ABSENCE OF OTHER SPECIFIED PARTS OF DIGESTIVE TRACT Comment: 09/21/19 - TPN with pharmacy to dose until follow up with surgeon - Full liquid diet - Drain to RLQ draining brown odorous fluid - Afebrile - Follow-up with surgeon, Dr. Garcia, as scheduled 09/21/19 (3) Physical deconditioning Current Visit: Yes Status: Acute Base Code: R53.81 - OTHER MALAISE Comment: 09/21/19 - PT/PT for gait training, stability and strengthening (4) Oral thrush Current Visit: No Status: Acute Base Code: B37.0 - CANDIDAL STOMATITIS Comment: 09/21/19: - Oral thrush since discharge from [facility] - Completed course of Diflucan 200mg IVPB - Nystatin 5mL QID - Oral culture pending (5) Anxiety Current Visit: Yes Status: Acute Base Code: F41.9 - ANXIETY DISORDER, UNSPECIFIED Comment: 09/21/19 - Xanax 0.5mg QHS PRN (6) Hypertension Current Visit: No Status: Acute Base Code: I10 - ESSENTIAL (PRIMARY) HYPERTENSION Comment: 09/21/19 - Metoprolol 100mg QD - Losartan 100mg QD - BP remains at goal (7) DVT prophylaxis Current Visit: Yes Status: Acute Base Code: Z29.9 - ENCOUNTER FOR PROPHYLACTIC MEASURES, UNSPECIFIED Comment: 09/21/19: - Moderate risk due to age, recent surgery, and deconditioning - Patient participating with PT, encourage ambulation within the room (8) Full code status Current Visit: Yes Status: Acute Base Code: Z78.9 - OTHER SPECIFIED HEALTH STATUS Comment: 09/21/19 - Patient is a full code
[2019-09-21] MEDS: METOPROLOL SUCC 50 MG TABLET PO SCH (10:39)
[2019-09-21] MEDS: OCTREOTIDE ACETATE 100 MCG/ML SC SCH ×2 (10:43→21:54)
[2019-09-21] MEDS: FAMOTIDINE IV 20 MG/2 ML VIAL IVP SCH ×2 (10:46→21:54)
[2019-09-21] MEDS: 0.9 % SODIUM CHLORIDE 10ML SYR IVP SCH ×2 (10:50→21:51)
[2019-09-21] MEDS: HEPARIN SODIUM FLUSH 100 UNITS/ML SYR 5ML IV SCH ×2 (10:50→21:53)
[2019-09-21] MEDS: NYSTATIN 100,000 UNITS/ML 5ML CUP PO SCH ×4 (10:54→21:53)
[2019-09-21] MEDS: LOSARTAN POTASSIUM 100 MG TABLET PO SCH (12:31)
--- NOTE | 2019-09-21 15:50 | Physical Therapy Tx Note ---
Physical Therapy Tx Note - Treatment Note Tolerated: Good Total Time Spent With Patient: 45 (Ther Ex x30 min) Physical Therapy Tx Note: Detail (Patient was seated in chair upon TILT TRAY DRIVER arrival. Patient transferred sit to and from stand with supervision. Patient ambulated 5 60 feet with pushing IV pole with supervision. Patient transferred sit to and from stand with supervision. Patient required seated rest break due to fatigue and shortness of breath. Patient ambulated 50 feet with pushing IV pole with supervision. Patient was on recumbent bike x5 minutes. Patient required a seated rest break due to shortness of breath and fatigue. Patient transferred sit to and from stand with supervision. Patient ambulated 20 feet with pushing IV pole with supervison. Patient performed the following standing exercises x10 reps each: heel raises, toe raises, hip abduction, hip extension, squats, marching, and step ups on 3" step. Patient performed the following balance exercises x15 seconds each: foam DLS, foam feet together, foam feet together looking up and down, foam feet together looking side to side, floor feet together with eyes closed, and floor stride stance. Patient displays decreased balance with feet together, feet together looking up and down, feet together looking side to side, feet together eyes closed, and stride stance. Patient required several seated rest breaks with standing exercises and balance due to fatigue. Patient transferred sit to and from stand with supervision. Patient reports feeling tired after treatment. Patient was left seated in chair with call light within reach.) Physical Therapy Problem List: Detail (1. Decreased LE strength 2. Decreased endurance during ambulation 3. Decreased tolerance for stairs) Physical Therapy Goals: 1. Patient will be independent in a HEP to maintain and improve LE strength for functional activities. 2. Patient will be independent in ascending and descending 10 stairs to be able to use the stairs to her basement after discharge. 3. Patient will be able to ambulate 200 feet independently without an AD without shortness of breath to be able to ambulate in the community. Prognosis: Good Physical Therapy Plan: Patient will be seen 2-3x per week, M-F, for therapeutic exercises and activities, gait training, transfer training, and HEP instruction.
[2019-09-21] MEDS: SODIUM ACETATE IV SCH ×15 (21:50)
[2019-09-21] MEDS: [UNRECOGNIZED DRUG - OTHER] IV SCH ×15 (21:50)
[2019-09-21] MEDS: SODIUM CHLORIDE IV SCH ×15 (21:50)
[2019-09-22 07:16] LABS: BLOOD UREA NITROGEN 20 mg/dL (8-23); CREATININE 0.6 mg/dL (0.5-0.9); EST GLOMERULAR FILTRATION RATE > 60 mL/min; GLUCOSE,RANDOM 144 mg/dL (74-109)
[2019-09-22] MEDS: OCTREOTIDE ACETATE 100 MCG/ML SC SCH ×2 (09:53→21:54)
[2019-09-22] MEDS: NYSTATIN 100,000 UNITS/ML 5ML CUP PO SCH ×4 (09:54→21:54)
[2019-09-22] MEDS: HEPARIN SODIUM FLUSH 100 UNITS/ML SYR 5ML IV SCH ×2 (09:54→21:54)
[2019-09-22] MEDS: 0.9 % SODIUM CHLORIDE 10ML SYR IVP SCH ×2 (09:54→21:54)
[2019-09-22] MEDS: FAMOTIDINE IV 20 MG/2 ML VIAL IVP SCH ×2 (09:54→21:55)
[2019-09-22] MEDS: METOPROLOL SUCC 50 MG TABLET PO SCH (09:55)
[2019-09-22] MEDS: LOSARTAN POTASSIUM 100 MG TABLET PO SCH (12:58)
--- NOTE | 2019-09-22 14:02 | Physical Therapy Tx Note ---
Physical Therapy Tx Note - Treatment Note Tolerated: Good Total Time Spent With Patient: 40 (Ther Ex x20) Physical Therapy Tx Note: Detail (Patient was seated in chair upon OPERATIONS VOCATIONAL INSTRUCTOR arrival. Patient ambulated 610 feet with pushing IV pole with supervision. Patient performed recumbent bike L1 x8 minutes. Patient displays increased endurance before becoming short of breath on recumbent bike. Patient ambulated 50 feet, then 20 feet with pushing IV pole with supervision. Patient performed the following standing exercises x10 reps each: marching, hip abduction, hip extension, hamstring curls, toe raises, heel raises, and step ups forward and lateral. Patient performed feet together eyes closed and stride stance on floor x30 seconds each. Patient required several seated rest breaks with standing exercises and balance due to fatigue. Patient displays decreased balance with stride stance and feet together with eyes closed. Patient ambulated 590 feet with pushing IV pole with supervision.) Physical Therapy Problem List: Detail (1. Decreased LE strength 2. Decreased endurance during ambulation 3. Decreased tolerance for stairs) Physical Therapy Goals: 1. Patient will be independent in a HEP to maintain and improve LE strength for functional activities. 2. Patient will be independent in ascending and descending 10 stairs to be able to use the stairs to her basement after discharge. 3. Patient will be able to ambulate 200 feet independently without an AD without shortness of breath to be able to ambulate in the community. Prognosis: Good Physical Therapy Plan: Patient will be seen 2-3x per week, M-F, for therapeutic exercises and activities, gait training, transfer training, and HEP instruction.
[2019-09-22] MEDS: SODIUM CHLORIDE IV SCH ×15 (21:55)
[2019-09-22] MEDS: [UNRECOGNIZED DRUG - OTHER] IV SCH ×15 (21:55)
[2019-09-22] MEDS: SODIUM ACETATE IV SCH ×15 (21:55)
[2019-09-22] MEDS: ALPRAZOLAM 0.25 MG TABLET PO PRN (22:15)
[2019-09-23 07:03] LABS: BLOOD UREA NITROGEN 21 mg/dL (8-23); CREATININE 0.5 mg/dL (0.5-0.9); EST GLOMERULAR FILTRATION RATE > 60 mL/min; GLUCOSE,RANDOM 154 mg/dL (74-109)
[2019-09-23] MEDS: FAMOTIDINE IV 20 MG/2 ML VIAL IVP SCH ×2 (09:34→21:33)
[2019-09-23] MEDS: NYSTATIN 100,000 UNITS/ML 5ML CUP PO SCH ×3 (09:37→21:33)
[2019-09-23] MEDS: METOPROLOL SUCC 50 MG TABLET PO SCH (09:37)
[2019-09-23] MEDS: HEPARIN SODIUM FLUSH 100 UNITS/ML SYR 5ML IV SCH ×2 (09:37→21:33)
[2019-09-23] MEDS: 0.9 % SODIUM CHLORIDE 10ML SYR IVP SCH ×2 (09:38→21:34)
[2019-09-23] MEDS: OCTREOTIDE ACETATE 100 MCG/ML SC SCH (09:39)
--- NOTE | 2019-09-23 11:38 | Physical Therapy Tx Note ---
Physical Therapy Tx Note - Treatment Note Tolerated: Good Total Time Spent With Patient: 30 Physical Therapy Tx Note: Detail (Patient ambulated 600 feet in the hallway independently pushing her IV pole. She did 4 minutes on the recumbent bike alternating from levels between 1 and 2. The pateint reported that she was feeling more tired today and took a rest break after the bike before continuing with more exercises. She performed the following exercises in standing: hip abduction x10, hip extension x10, marching x10, side steps forward and lateral x10, overhead press with 2# ball, squats x10. In seated she completed chest press with 2# ball, D1 flexion and extension with 2#ball, hamstring curls x10 with blue Tband, hip abduction x10 with blue Tband, and knee extension on the L with blue Tband. She had pain with performing knee extension on the R due to pain so the exercise was stopped. Patient needed rest breaks between every couple of exercises due to shortness of breath and fatigued so standing exercises were alternated with seated exercises. At the end of the session, the patient asked to be taken back to her room in the due to feeling fatigued.) Physical Therapy Problem List: Detail (1. Decreased LE strength 2. Decreased endurance during ambulation 3. Decreased tolerance for stairs) Physical Therapy Goals: 1. Patient will be independent in a HEP to maintain and improve LE strength for functional activities. 2. Patient will be independent in ascending and descending 10 stairs to be able to use the stairs to her basement after discharge. 3. Patient will be able to ambulate 200 feet indepe ndently without an AD without shortness of breath to be able to ambulate in the community. Physical Therapy Plan: Patient will be seen 1-2x per week, M-F, for therapeutic exercises and activities, gait training, transfer training, and HEP instruction.
[2019-09-23] MEDS: LOSARTAN POTASSIUM 100 MG TABLET PO SCH (13:03)
[2019-09-23] MEDS: ALPRAZOLAM 0.25 MG TABLET PO PRN (21:43)
[2019-09-23] MEDS: SODIUM CHLORIDE IV SCH ×15 (23:16)
[2019-09-23] MEDS: [UNRECOGNIZED DRUG - OTHER] IV SCH ×15 (23:16)
[2019-09-23] MEDS: SODIUM ACETATE IV SCH ×15 (23:16)
[2019-09-24] MEDS: NYSTATIN 100,000 UNITS/ML 5ML CUP PO SCH ×5 (01:27→21:19)
[2019-09-24 06:53] LABS: BLOOD UREA NITROGEN 22 mg/dL (8-23); CREATININE 0.5 mg/dL (0.5-0.9); EST GLOMERULAR FILTRATION RATE > 60 mL/min; GLUCOSE,RANDOM 145 mg/dL (74-109)
[2019-09-24] MEDS: OCTREOTIDE ACETATE 100 MCG/ML SC SCH (10:30)
[2019-09-24] MEDS: FAMOTIDINE IV 20 MG/2 ML VIAL IVP SCH ×2 (10:30→21:19)
[2019-09-24] MEDS: HEPARIN SODIUM FLUSH 100 UNITS/ML SYR 5ML IV SCH ×2 (10:31→21:19)
[2019-09-24] MEDS: 0.9 % SODIUM CHLORIDE 10ML SYR IVP SCH ×2 (10:31→21:20)
[2019-09-24] MEDS: METOPROLOL SUCC 50 MG TABLET PO SCH (10:32)
[2019-09-24] MEDS: LOSARTAN POTASSIUM 100 MG TABLET PO SCH (13:04)
[2019-09-24] MEDS: ALPRAZOLAM 0.25 MG TABLET PO PRN ×2 (21:28→22:55)
[2019-09-24] MEDS: SODIUM ACETATE IV SCH ×15 (23:49)
[2019-09-24] MEDS: SODIUM CHLORIDE IV SCH ×15 (23:49)
[2019-09-24] MEDS: [UNRECOGNIZED DRUG - OTHER] IV SCH ×15 (23:49)
[2019-09-25 07:02] LABS: BLOOD UREA NITROGEN 22 mg/dL (8-23); CREATININE 0.5 mg/dL (0.5-0.9); EST GLOMERULAR FILTRATION RATE > 60 mL/min; GLUCOSE,RANDOM 117 mg/dL (74-109)
[2019-09-25] MEDS: NYSTATIN 100,000 UNITS/ML 5ML CUP PO SCH ×4 (10:39→21:18)
[2019-09-25] MEDS: FAMOTIDINE IV 20 MG/2 ML VIAL IVP SCH ×2 (10:40→21:18)
[2019-09-25] MEDS: HEPARIN SODIUM FLUSH 100 UNITS/ML SYR 5ML IV SCH ×2 (10:44→21:18)
[2019-09-25] MEDS: OCTREOTIDE ACETATE 100 MCG/ML SC SCH (10:44)
[2019-09-25] MEDS: METOPROLOL SUCC 50 MG TABLET PO SCH (10:44)
[2019-09-25] MEDS: 0.9 % SODIUM CHLORIDE 10ML SYR IVP SCH ×2 (10:44→21:18)
[2019-09-25] MEDS: LOSARTAN POTASSIUM 100 MG TABLET PO SCH (16:29)
[2019-09-25] MEDS: ALPRAZOLAM 0.25 MG TABLET PO PRN (21:17)
[2019-09-25] MEDS: [UNRECOGNIZED DRUG - OTHER] IV SCH ×15 (21:18)
[2019-09-25] MEDS: SODIUM ACETATE IV SCH ×15 (21:18)
[2019-09-25] MEDS: SODIUM CHLORIDE IV SCH ×15 (21:18)
[2019-09-26 06:44] LABS: ALBUMIN 3.2 g/dL (4.0-5.0); ALKALINE PHOSPHATASE 82 U/L (35-104); ALT/SGPT 7 U/L (<33); AST/SGOT 13 U/L (10.0-35.0); BLOOD UREA NITROGEN 20 mg/dL (8-23); CREATININE 0.6 mg/dL (0.5-0.9); EST GLOMERULAR FILTRATION RATE > 60 mL/min; GLUCOSE,RANDOM 126 mg/dL (74-109); TOTAL PROTEIN 6.3 g/dL (6.6-8.7); TRIGLYCERIDES 199 mg/dL (<150)
[2019-09-26] MEDS: HEPARIN SODIUM FLUSH 100 UNITS/ML SYR 5ML IV SCH ×2 (09:19→21:59)
[2019-09-26] MEDS: OCTREOTIDE ACETATE 100 MCG/ML SC SCH (09:19)
[2019-09-26] MEDS: NYSTATIN 100,000 UNITS/ML 5ML CUP PO SCH ×4 (09:19→21:59)
[2019-09-26] MEDS: 0.9 % SODIUM CHLORIDE 10ML SYR IVP SCH ×2 (09:19→21:59)
[2019-09-26] MEDS: METOPROLOL SUCC 50 MG TABLET PO SCH (09:20)
[2019-09-26] MEDS: FAMOTIDINE IV 20 MG/2 ML VIAL IVP SCH ×2 (09:20→21:59)
[2019-09-26] MEDS: LOSARTAN POTASSIUM 100 MG TABLET PO SCH (13:14)
[2019-09-26] MEDS: ALPRAZOLAM 0.25 MG TABLET PO PRN (22:09)
[2019-09-26] MEDS: [UNRECOGNIZED DRUG - OTHER] IV SCH ×14 (23:21)
[2019-09-26] MEDS: SODIUM ACETATE IV SCH ×14 (23:21)
[2019-09-26] MEDS: SODIUM CHLORIDE IV SCH ×14 (23:21)
[2019-09-27] MEDS: ALPRAZOLAM 0.25 MG TABLET PO PRN ×2 (02:27→21:37)
[2019-09-27 06:49] LABS: BLOOD UREA NITROGEN 19 mg/dL (8-23); CREATININE 0.5 mg/dL (0.5-0.9); EST GLOMERULAR FILTRATION RATE > 60 mL/min; GLUCOSE,RANDOM 127 mg/dL (74-109)
[2019-09-27] MEDS: NYSTATIN 100,000 UNITS/ML 5ML CUP PO SCH ×4 (09:07→21:29)
[2019-09-27] MEDS: 0.9 % SODIUM CHLORIDE 10ML SYR IVP SCH ×2 (09:07→21:30)
[2019-09-27] MEDS: HEPARIN SODIUM FLUSH 100 UNITS/ML SYR 5ML IV SCH ×2 (09:07→21:30)
[2019-09-27] MEDS: OCTREOTIDE ACETATE 100 MCG/ML SC SCH (09:07)
[2019-09-27] MEDS: METOPROLOL SUCC 50 MG TABLET PO SCH (09:08)
[2019-09-27] MEDS: FAMOTIDINE IV 20 MG/2 ML VIAL IVP SCH ×2 (09:08→21:29)
[2019-09-27] MEDS: LOSARTAN POTASSIUM 100 MG TABLET PO SCH (11:55)
--- NOTE | 2019-09-27 11:58 | Physical Therapy Tx Note ---
Physical Therapy Tx Note - Treatment Note Tolerated: Good Total Time Spent With Patient: 30 Physical Therapy Tx Note: Detail (Patient reported that she was feeling good today. She ambulated 610 feet in the hallway with the IV pole independently. In the therapy gym she rode the reciprocal bike for 7 minutes on level 1.2. Patient was a little fatigued after riding the bike, but was able to move onto the exercises without extra fatigue. In standing she did step up forward and lateral x10, heel raises, foam balance wide BETTY x30'', foam balance narrow BETTY x30'', marching x15, hip abduction x15, stride stance on blue foam x30'', eyes closed balance on floor x30'', hip extension x15, and squats x10. In sitting she did overhead press with a 2# ball, chest press with a 2# ball, and PNF D2 flexion with 2# ball. Exercises were done bilaterally. Patient needed 2 rest breaks today during exercises due to fatigue. She has progressed in being able to tolerate more standing exercises consecutively without extra fatigue. The patient was too fatigued at the end of the session, so she was taken back to her room in a WC. The patient was left in the recliner with her call light and bedside table within reach.) Physical Therapy Problem List: Detail (1. Decreased LE strength 2. Decreased endurance during ambulation 3. Decreased tolerance for stairs) Physical Therapy Goals: 1. Patient will be independent in a HEP to maintain and improve LE strength for functional activities. 2. Patient will be independent in ascending and descending 10 stairs to be able to use the stairs to her basement after discharge. 3. Patient will be able to ambulate 200 feet independently without an AD without shortness of breath to be able to ambulate in the community. Physical Therapy Plan: Patient will be seen 1-2x per week, M-F, for therapeutic exercises and activities, gait training, transfer training, and HEP instruction.
[2019-09-27] MEDS: BIFIDOBACTERIUM INFANTIS 4 MG CAPSULE PO SCH (18:34)
[2019-09-28] MEDS: [UNRECOGNIZED DRUG - OTHER] IV SCH ×14 (00:59)
[2019-09-28] MEDS: SODIUM ACETATE IV SCH ×14 (00:59)
[2019-09-28] MEDS: SODIUM CHLORIDE IV SCH ×14 (00:59)
[2019-09-28] MEDS: ALPRAZOLAM 0.25 MG TABLET PO PRN (01:03)
[2019-09-28 06:53] LABS: BLOOD UREA NITROGEN 22 mg/dL (8-23); CREATININE 0.6 mg/dL (0.5-0.9); EST GLOMERULAR FILTRATION RATE > 60 mL/min; GLUCOSE,RANDOM 122 mg/dL (74-109)
[2019-09-28] MEDS: 0.9 % SODIUM CHLORIDE 10ML SYR IVP SCH ×2 (09:44→21:29)
[2019-09-28] MEDS: HEPARIN SODIUM FLUSH 100 UNITS/ML SYR 5ML IV SCH ×2 (09:45→21:29)
[2019-09-28] MEDS: FAMOTIDINE IV 20 MG/2 ML VIAL IVP SCH ×2 (09:45→21:29)
[2019-09-28] MEDS: BIFIDOBACTERIUM INFANTIS 4 MG CAPSULE PO SCH (09:45)
[2019-09-28] MEDS: METOPROLOL SUCC 50 MG TABLET PO SCH (09:45)
[2019-09-28] MEDS: NYSTATIN 100,000 UNITS/ML 5ML CUP PO SCH ×4 (09:45→21:29)
[2019-09-28] MEDS: OCTREOTIDE ACETATE 100 MCG/ML SC SCH (09:45)
--- NOTE | 2019-09-28 11:41 | Physician Progress Note ---
Subjective - Date Date of Progress Note: 09/28/19 - Admitting Diagnosis Diagnosis: colectomy - Subjective Nursing Care Plan Problem List Activity Intolerance (Swing Bed) Start: 09/09/19 13:22 Freq: Status: Active Protocol: Created 09/09/19 13:22 KM (Rec: 09/09/19 13:22 [facility] [place] [facility]S-1) Altered Thought Process (Fall Risk) Start: 09/17/19 09:06 Freq: Status: Active Protocol: Created 09/17/19 09:06 [facility] (Rec: 09/17/19 09:06 [facility] [place] ASTS-1) Anxiety Start: 09/11/19 13:25 Freq: Status: Active Protocol: Created 09/11/19 13:25 MMT (Rec: 09/11/19 13:25 MMT ASTS-1) Impaired Mobility (Fall Risk) Start: 09/17/19 09:06 Freq: Status: Active Protocol: Created 09/17/19 09:06 [facility] [place] (Rec: 09/17/19 09:06 [facility] [place] ASTS-1) Impaired Skin Integrity Start: 09/11/19 13:25 Freq: Status: Active Protocol: Created 09/11/19 13:25 MMT (Rec: 09/11/19 13:25 MMT ASTS-1) Knowledge Deficit (Swing Bed) Start: 09/09/19 13:22 Freq: Status: Active Protocol: Created 09/09/19 13:22 KM (Rec: 09/09/19 13:22 [facility] [place] ASTS-1) Pain (Swing Bed) Start: 09/09/19 13:22 Freq: Status: Active Protocol: Created 09/09/19 13:22 KM (Rec: 09/09/19 13:22 [facility] [place] ASTS-1) Risk for Injury (Fall Risk) Start: 09/17/19 09:06 Freq: Status: Active Protocol: Created 09/17/19 09:06 [facility] [place] (Rec: 09/17/19 09:06 [facility] [place] ASTS-1) Subjective: Pt reported difficulty sleeping d/t having to get up in the night to urinate. Is on an almost liquid diet between oral intake and TPN. Denied having any pain or trouble with bowel movements. Has f/u with Dr. Garcia (surgeon) on 10/04/19. - Subjective Detail Comment: No additional complaints except as noted below Genitourinary: Reports: Urgency (only at night) General - Cognitive Patterns Speech: Normal Thought Process: Intact Thought Content: Normal - Communication Select best description of speech pattern: Clear Speech Ability to express ideas and wants: Understood Understanding verbal content: Understands - Mood and Behavior Patterns Appearance: Well Groomed Mood: Normal Attitude: Cooperative Motor Activity: Calm Affect: Appropriate Hallucinations: Denies - Physical Functioning Activity Level: Up as tolerated Turning: With partial assist ROM Ability: Within Normal Limits Assistive Devices: None Ambulation Ability: Independent Bed Mobility: Independent Transfer Ability: Independent Bathing Ability: Independent Personal Hygiene: Independent Dressing Ability: Independent Eating (Feeding) Ability: Independent Toileting Ability: Independent Administer Own Medication: Independent - Continence Bowel Pattern: Colostomy Bladder Pattern: Normal Urinary Incontinence: Urge Meds/Allergies - Allergies Allergies Allergy/AdvReac Type Severity Reaction Status Date / Time citalopram hydrobromide Allergy Severe CONFUSION Unverified 10/28/17 14:54 [From Celexa] nifedipine [From PROCARDIA] Allergy Severe CHF Unverified 10/28/17 14:54 pregabalin [From LYRICA] Allergy Severe SWELLING Unverified 10/28/17 14:54 OF THE FACE hydromorphone HCl Allergy Intermediate BEHAVIORAL Unverified 10/28/17 14:54 [From DILAUDID] CHANGES mirabegron [From Myrbetriq] Allergy Intermediate RASH Unverified 10/28/17 14:54 morphine [MORPHINE] Allergy Unknown BEHAVIORAL Unverified 10/28/17 14:54 CHANGES amitriptyline AdvReac ALTERED Unverified 10/28/17 14:54 MENTAL STATUS carbamazepine AdvReac NAUSEA Unverified 10/28/17 14:54 gabapentin AdvReac DIZZINESS Unverified 10/28/17 14:54 oxcarbazepine AdvReac MUSCLE PAIN Unverified 10/28/17 14:54 oxycodone AdvReac MUSCLE PAIN Unverified 10/28/17 14:54 phenytoin [From Dilantin] AdvReac HYPERSENSIT Unverified 10/28/17 14:54 IVITY potassium chloride AdvReac MUSCLE PAIN Unverified 10/28/17 14:54 - Active Medications Current Medications Alprazolam (Xanax) 0.5 mg PO QHS PRN PRN Reason: ANXIETY Last Admin: 09/28/19 01:03 Dose: 0.25 mg Documented by: Famotidine (Pepcid Iv) 20 mg IVP BID [facility] Last Admin: 09/28/19 09:45 Dose: 20 mg Documented by: Heparin Sodium (Porcine) () 500 unit IV BID [facility] Last Admin: 09/28/19 09:45 Dose: 500 unit Documented by: Sodium Chloride 35 meq/ Sodium Acetate 25 meq/ Sodium Phosphate 10 mm/ Potassium Chloride 20 meq/ Potassium Acetate 20 meq/ Calcium Gluconate 200 mg/ Magnesium Sulfate 10 meq/ Multivitamins/Minerals 10 ml/ Chromium/Copper/Manganese/Seleni/Zn 1 ml/ Folic Acid 1 mg/ Dextrose/Amino Acids/ Fat Emulsion Intravenous/ Sterile Water 1,050 mls @ 43.75 mls/hr IV 1900 [facility] Last Admin: 09/28/19 00:59 Dose: 43.75 mls/hr Documented by: Losartan Potassium (Losartan Potassium) 100 mg PO 1200 [facility] Last Admin: 09/27/19 11:55 Dose: 100 mg Documented by: Metoprolol Succinate (Toprol Xl) 100 mg PO DAILY [facility] Last Admin: 09/28/19 09:45 Dose: 100 mg Documented by: Nystatin () 5 ml PO QID [facility] Last Admin: 09/28/19 09:45 Dose: 5 ml Documented by: Octreotide Acetate (Octreotide Acetate) 100 mcg SC DAILY [facility] Last Admin: 09/28/19 09:45 Dose: 100 mcg Documented by: Sodium Chloride () 10 ml IVP Q12H [facility] Last Admin: 09/28/19 09:44 Dose: 10 ml Documented by: Objective - Vital Signs Vital Signs: Vital Signs - Last 24 Hrs Temp Pulse Resp BP Pulse Ox 09/28/19 11:16 97.6 F 106 H 18 107/43 98 09/27/19 20:00 97.3 F L 91 H 16 112/41 96 - General General Appearance: Alert, Oriented x3, Cooperative, No acute distress - Respiratory Respiratory exam: negative: Respiratory distress - Neurological Neurological exam: Alert, Oriented X3 - Psychiatric Psychiatric exam: Normal affect, Normal mood H&P Results - Labs Result Diagrams: 09/13/19 06:30 09/28/19 06:30 Labs Last 24 Hours: Laboratory Results - last 24 hr 09/28/19 09/28/19 06:30 06:30 Sodium 139 Potassium 3.9 Chloride 102 Carbon Dioxide 26.0 Anion Gap 11.0 BUN 22 Creatinine 0.6 Estimated GFR > 60 Random Glucose 122 H Calcium 9.5 Phosphorus 3.6 Magnesium 2.0 Discharge Potential - Discharge Needs Community Services Used Prior to Admission: None Patient Discharge Plan Description: Return Home Community Services Needed at Discharge: Home Health Nurse Plan - Swing Bed Certification Initial Certification Due: 09/09/19 14 Day Re-Cert Due: 09/23/19 44 Day Re-Cert Due: 10/23/19 74 Day Re-Cert Due: 11/22/19 - Detailed Diagnosis and Plan (1) Nocturia Current Visit: Yes Status: Acute Base Code: R35.1 - NOCTURIA Comment: 09/28/19 -Poor sleep d/t nocturia r/t TPN and nearly all liquid PO intake -Pt will likely have decrease in TPN needs in 1 week -Discussed with pt that medications for overactive bladder will be too risky and that once TPN is decreased, urinating in the night should decrease. (2) On parenteral nutrition Current Visit: Yes Status: Acute Base Code: Z78.9 - OTHER SPECIFIED HEALTH STATUS Comment: 09/28/19 - Getting approximately 50% of needs from TPN and 50% from Oral intake - Pharmacy to dose TPN - Advance diet per surgeon, Dr. Garcia. Next follow-up scheduled 10/04/19 (3) Full code status Current Visit: Yes Status: Acute Base Code: Z78.9 - OTHER SPECIFIED HEALTH STATUS Comment: 09/28/19 - Patient is a full code (4) DVT prophylaxis Current Visit: Yes Status: Acute Base Code: Z29.9 - ENCOUNTER FOR PROPHYLACTIC MEASURES, UNSPECIFIED Comment: 09/28/19: - Moderate risk due to age, recent surgery, and deconditioning - Patient participating with PT, encourage ambulation within the room
[2019-09-28] MEDS: LOSARTAN POTASSIUM 100 MG TABLET PO SCH (12:11)
[2019-09-29] MEDS: SODIUM CHLORIDE IV SCH ×14 (01:20)
[2019-09-29] MEDS: [UNRECOGNIZED DRUG - OTHER] IV SCH ×14 (01:20)
[2019-09-29] MEDS: SODIUM ACETATE IV SCH ×14 (01:20)
[2019-09-29 06:27] LABS: BLOOD UREA NITROGEN 21 mg/dL (8-23); CREATININE 0.6 mg/dL (0.5-0.9); EST GLOMERULAR FILTRATION RATE > 60 mL/min; GLUCOSE,RANDOM 127 mg/dL (74-109)
[2019-09-29] MEDS: 0.9 % SODIUM CHLORIDE 10ML SYR IVP SCH ×2 (10:20→22:09)
[2019-09-29] MEDS: FAMOTIDINE IV 20 MG/2 ML VIAL IVP SCH ×2 (10:20→22:09)
[2019-09-29] MEDS: OCTREOTIDE ACETATE 100 MCG/ML SC SCH (10:20)
[2019-09-29] MEDS: HEPARIN SODIUM FLUSH 100 UNITS/ML SYR 5ML IV SCH ×2 (10:20→22:09)
[2019-09-29] MEDS: NYSTATIN 100,000 UNITS/ML 5ML CUP PO SCH ×4 (10:22→22:09)
[2019-09-29] MEDS: METOPROLOL SUCC 50 MG TABLET PO SCH (10:23)
[2019-09-29] MEDS: BIFIDOBACTERIUM INFANTIS 4 MG CAPSULE PO SCH (10:23)
[2019-09-29] MEDS: LOSARTAN POTASSIUM 100 MG TABLET PO SCH (14:31)
[2019-09-29] MEDS ORDERED: SODIUM CHLORIDE IV SCH ×13 (19:00)
[2019-09-29] MEDS ORDERED: [UNRECOGNIZED DRUG - OTHER] IV SCH ×13 (19:00)
[2019-09-29] MEDS ORDERED: SODIUM ACETATE IV SCH ×13 (19:00)
[2019-09-30] MEDS: ALPRAZOLAM 0.25 MG TABLET PO PRN ×2 (00:48→21:41)
[2019-09-30 06:52] LABS: BLOOD UREA NITROGEN 20 mg/dL (8-23); CREATININE 0.6 mg/dL (0.5-0.9); EST GLOMERULAR FILTRATION RATE > 60 mL/min; GLUCOSE,RANDOM 122 mg/dL (74-109)
[2019-09-30] MEDS: OCTREOTIDE ACETATE 100 MCG/ML SC SCH (09:41)
[2019-09-30] MEDS: NYSTATIN 100,000 UNITS/ML 5ML CUP PO SCH ×4 (09:42→21:16)
[2019-09-30] MEDS: 0.9 % SODIUM CHLORIDE 10ML SYR IVP SCH ×2 (09:43→21:15)
[2019-09-30] MEDS: HEPARIN SODIUM FLUSH 100 UNITS/ML SYR 5ML IV SCH ×2 (09:43→21:15)
[2019-09-30] MEDS: METOPROLOL SUCC 50 MG TABLET PO SCH (09:43)
[2019-09-30] MEDS: BIFIDOBACTERIUM INFANTIS 4 MG CAPSULE PO SCH (09:43)
[2019-09-30] MEDS: FAMOTIDINE IV 20 MG/2 ML VIAL IVP SCH ×2 (09:48→21:15)
[2019-09-30] MEDS: LOSARTAN POTASSIUM 100 MG TABLET PO SCH (11:48)
[2019-09-30] MEDS: SODIUM CHLORIDE IV SCH ×13 (21:16)
[2019-09-30] MEDS: [UNRECOGNIZED DRUG - OTHER] IV SCH ×13 (21:16)
[2019-09-30] MEDS: SODIUM ACETATE IV SCH ×13 (21:16)
[2019-10-01 06:43] LABS: BLOOD UREA NITROGEN 20 mg/dL (8-23); CREATININE 0.5 mg/dL (0.5-0.9); EST GLOMERULAR FILTRATION RATE > 60 mL/min; GLUCOSE,RANDOM 120 mg/dL (74-109)
[2019-10-01] MEDS: BIFIDOBACTERIUM INFANTIS 4 MG CAPSULE PO SCH (09:19)
[2019-10-01] MEDS: 0.9 % SODIUM CHLORIDE 10ML SYR IVP SCH ×2 (09:19→21:08)
[2019-10-01] MEDS: NYSTATIN 100,000 UNITS/ML 5ML CUP PO SCH ×4 (09:19→21:08)
[2019-10-01] MEDS: METOPROLOL SUCC 50 MG TABLET PO SCH (09:19)
[2019-10-01] MEDS: HEPARIN SODIUM FLUSH 100 UNITS/ML SYR 5ML IV SCH ×2 (09:19→21:08)
[2019-10-01] MEDS: FAMOTIDINE IV 20 MG/2 ML VIAL IVP SCH ×2 (09:23→21:08)
[2019-10-01] MEDS: OCTREOTIDE ACETATE 100 MCG/ML SC SCH (09:23)
[2019-10-01] MEDS: LOSARTAN POTASSIUM 100 MG TABLET PO SCH (14:48)
[2019-10-01] MEDS: ALPRAZOLAM 0.25 MG TABLET PO PRN (21:08)
[2019-10-01] MEDS: [UNRECOGNIZED DRUG - OTHER] IV SCH ×13 (21:09)
[2019-10-01] MEDS: SODIUM ACETATE IV SCH ×13 (21:09)
[2019-10-01] MEDS: SODIUM CHLORIDE IV SCH ×13 (21:09)
[2019-10-02] MEDS: ALPRAZOLAM 0.25 MG TABLET PO PRN ×2 (01:01→21:43)
[2019-10-02 06:37] LABS: BLOOD UREA NITROGEN 20 mg/dL (8-23); CREATININE 0.6 mg/dL (0.5-0.9); EST GLOMERULAR FILTRATION RATE > 60 mL/min; GLUCOSE,RANDOM 120 mg/dL (74-109)
[2019-10-02] MEDS: FAMOTIDINE IV 20 MG/2 ML VIAL IVP SCH ×3 (08:28→21:43)
[2019-10-02] MEDS: NYSTATIN 100,000 UNITS/ML 5ML CUP PO SCH ×5 (08:28→21:43)
[2019-10-02] MEDS: OCTREOTIDE ACETATE 100 MCG/ML SC SCH ×2 (08:28→09:10)
[2019-10-02] MEDS: BIFIDOBACTERIUM INFANTIS 4 MG CAPSULE PO SCH ×2 (08:29→09:10)
[2019-10-02] MEDS: HEPARIN SODIUM FLUSH 100 UNITS/ML SYR 5ML IV SCH ×3 (08:29→21:43)
[2019-10-02] MEDS: METOPROLOL SUCC 50 MG TABLET PO SCH ×2 (08:29→09:10)
[2019-10-02] MEDS: 0.9 % SODIUM CHLORIDE 10ML SYR IVP SCH ×3 (08:29→21:43)
--- NOTE | 2019-10-02 09:34 | Physician Progress Note ---
Subjective - Date Date of Progress Note: 10/02/19 - Admitting Diagnosis Diagnosis: colectomy - Subjective Nursing Care Plan Problem List Activity Intolerance (Swing Bed) Start: 09/09/19 13:22 Freq: Status: Active Protocol: Created 09/09/19 13:22 [facility] (Rec: 09/09/19 13:22 [facility] ASTS-1) Altered Thought Process (Fall Risk) Start: 09/17/19 09:06 Freq: Status: Active Protocol: Created 09/17/19 09:06 [facility] (Rec: 09/17/19 09:06 [facility] ASTS-1) Anxiety Start: 09/11/19 13:25 Freq: Status: Active Protocol: Created 09/11/19 13:25 MMT (Rec: 09/11/19 13:25 MMT ASTS-1) Impaired Mobility (Fall Risk) Start: 09/17/19 09:06 Freq: Status: Active Protocol: Created 09/17/19 09:06 KM (Rec: 09/17/19 09:06 [facility] ASTS-1) Impaired Skin Integrity Start: 09/11/19 13:25 Freq: Status: Active Protocol: Created 09/11/19 13:25 MMT (Rec: 09/11/19 13:25 MMT ASTS-1) Knowledge Deficit (Swing Bed) Start: 09/09/19 13:22 Freq: Status: Active Protocol: Created 09/09/19 13:22 [facility] (Rec: 09/09/19 13:22 [facility] ASTS-1) Pain (Swing Bed) Start: 09/09/19 13:22 Freq: Status: Active Protocol: Created 09/09/19 13:22 KM (Rec: 09/09/19 13:22 [facility] ASTS-1) Risk for Injury (Fall Risk) Start: 09/17/19 09:06 Freq: Status: Active Protocol: Created 09/17/19 09:06 KM (Rec: 09/17/19 09:06 [facility] ASTS-1) Subjective: Patient sitting comfortably in chair, no concerns today. RLQ abdominal drain has minimal bloody serous drainage that continues to have an odor. Records from previous [facility] admission indicate patient positive for VRE from drain site, patient placed in contact isolation precautions. Afebrile, no other symptoms of infection. Continues with PO fluid intake, with consistent reduction of TPN. Follow-up with Dr. Garcia (Surgeon) scheduled 10/04/19. - Subjective Detail Comment: No additional complaints except as noted below Constitutional: Reports: As per HPI Eyes: Reports: As per HPI ENT: Reports: As per HPI Respiratory: Reports: As per HPI Cardiovascular: Reports: As per HPI Endocrine: Reports: As per HPI Gastrointestinal: Reports: As per HPI Genitourinary: Reports: As per HPI Musculoskeletal: Reports: As per HPI Skin: Reports: As per HPI Neurological: Reports: As per HPI Psychiatric: Reports: As per HPI Hematological/Lymphatic: Reports: As per HPI General - Cognitive Patterns Speech: Normal Thought Process: Intact Thought Content: Normal - Communication Select best description of speech pattern: Clear Speech Ability to express ideas and wants: Understood Understanding verbal content: Understands - Mood and Behavior Patterns Appearance: Well Groomed Mood: Normal Attitude: Cooperative Motor Activity: Calm Affect: Appropriate Hallucinations: Denies - Physical Functioning Activity Level: Up as tolerated Turning: Self ad natacha ROM Ability: Within Normal Limits Assistive Devices: None Ambulation Ability: Independent Bed Mobility: Independent Transfer Ability: Independent Bathing Ability: Independent Personal Hygiene: Independent Dressing Ability: Independent Eating (Feeding) Ability: Independent Toileting Ability: Independent Administer Own Medication: Independent - Continence Bowel Pattern: Normal for Patient Bladder Pattern: Normal Urinary Incontinence: Urge Meds/Allergies - Allergies Allergies Allergy/AdvReac Type Severity Reaction Status Date / Time citalopram hydrobromide Allergy Severe CONFUSION Unverified 10/28/17 14:54 [From Celexa] nifedipine [From PROCARDIA] Allergy Severe CHF Unverified 10/28/17 14:54 pregabalin [From LYRICA] Allergy Severe SWELLING Unverified 10/28/17 14:54 OF THE FACE hydromorphone HCl Allergy Intermediate BEHAVIORAL Unverified 10/28/17 14:54 [From DILAUDID] CHANGES mirabegron [From Myrbetriq] Allergy Intermediate RASH Unverified 10/28/17 14:54 morphine [MORPHINE] Allergy Unknown BEHAVIORAL Unverified 10/28/17 14:54 CHANGES amitriptyline AdvReac ALTERED Unverified 10/28/17 14:54 MENTAL STATUS carbamazepine AdvReac NAUSEA Unverified 10/28/17 14:54 gabapentin AdvReac DIZZINESS Unverified 10/28/17 14:54 oxcarbazepine AdvReac MUSCLE PAIN Unverified 10/28/17 14:54 oxycodone AdvReac MUSCLE PAIN Unverified 10/28/17 14:54 phenytoin [From Dilantin] AdvReac HYPERSENSIT Unverified 10/28/17 14:54 IVITY potassium chloride AdvReac MUSCLE PAIN Unverified 10/28/17 14:54 - Active Medications Current Medications Alprazolam (Xanax) 0.5 mg PO QHS PRN PRN Reason: ANXIETY Last Admin: 10/02/19 01:01 Dose: 0.25 mg Documented by: Famotidine (Pepcid Iv) 20 mg IVP BID [facility] Last Admin: 10/02/19 09:10 Dose: Not Given Documented by: Heparin Sodium (Porcine) () 500 unit IV BID [facility] Last Admin: 10/02/19 09:10 Dose: Not Given Documented by: Sodium Chloride 45 meq/ Sodium Acetate 15 meq/ Sodium Phosphate 10 mm/ Potassium Acetate 20 meq/ Calcium Gluconate 200 mg/ Magnesium Sulfate 10 meq/ Multivitamins/Minerals 10 ml/ Chromium/Copper/Manganese/Seleni/Zn 1 ml/ Folic Acid 1 mg/ Dextrose/Amino Acids/ Fat Emulsion Intravenous/ Sterile Water 1,050 mls @ 43.75 mls/hr IV 1900 [facility] Last Admin: 10/01/19 21:09 Dose: 43.75 mls/hr Documented by: Losartan Potassium (Losartan Potassium) 100 mg PO 1200 [facility] Last Admin: 10/01/19 14:48 Dose: 100 mg Documented by: Metoprolol Succinate (Toprol Xl) 100 mg PO DAILY [facility] Last Admin: 10/02/19 09:10 Dose: Not Given Documented by: Nystatin () 5 ml PO QID [facility] Last Admin: 10/02/19 09:10 Dose: Not Given Documented by: Octreotide Acetate (Octreotide Acetate) 100 mcg SC DAILY [facility] Last Admin: 10/02/19 09:10 Dose: Not Given Documented by: Sodium Chloride () 10 ml IVP Q12H [facility] Last Admin: 10/02/19 09:10 Dose: Not Given Documented by: Objective - Vital Signs Vital Signs: Vital Signs - Last 24 Hrs Temp Pulse Resp BP BP Pulse Ox 10/02/19 09:21 97.7 F 118/47 10/02/19 08:00 97.7 F 99 H 16 118/47 95 10/01/19 20:00 97.6 F 92 H 18 126/53 96 - General General Appearance: Alert, Oriented x3, Cooperative, No acute distress Limitations: No limitations - Head Head exam: Atraumatic, Normocephalic - Eye Eye exam: Normal appearance, EOMI - ENT ENT exam: Normal exam, Mucous membranes moist, Normal external ear exam Ear exam: Normal external inspection. negative: External canal tenderness Nasal Exam: Normal inspection. negative: Discharge, Sinus tenderness Mouth exam: Tongue elevation (lacy white patches on tongue) Teeth exam: Normal inspection. negative: Dental caries Throat exam: negative: Tonsillar erythema, Tonsillar exudate - Neck Neck exam: Normal inspection - Respiratory Respiratory exam: negative: Respiratory distress - Cardiovascular Cardiovascular Exam: Regular rate, Normal rhythm, Normal heart sounds Peripheral Pulses: 2+: Radial (R), Radial (L) - GI/Abdominal GI/Abdominal exam: Soft, Normal bowel sounds, Other (drain located on RLQ draining red odorous fluid). negative: Distended, Tenderness - Rectal Rectal exam: Deferred - exam: Deferred - Extremities Extremities exam: Normal inspection. negative: Pedal edema - Neurological Neurological exam: Alert, Normal gait, Oriented X3 - Psychiatric Psychiatric exam: Normal affect, Normal mood - Skin Skin exam: Normal color H&P Results - Labs Result Diagrams: 09/13/19 06:30 10/02/19 06:13 Labs Last 24 Hours: Laboratory Results - last 24 hr 10/02/19 06:13 Sodium 140 Potassium 3.8 Chloride 103 Carbon Dioxide 25.0 Anion Gap 12.0 BUN 20 Creatinine 0.6 Estimated GFR > 60 Random Glucose 120 H Calcium 9.3 Magnesium 2.0 Discharge Potential - Discharge Needs Community Services Used Prior to Admission: None Patient Discharge Plan Description: Return Home Community Services Needed at Discharge: Home Health Nurse Plan - Swing Bed Certification Initial Certification Due: 09/09/19 14 Day Re-Cert Due: 09/23/19 44 Day Re-Cert Due: 10/23/19 74 Day Re-Cert Due: 11/22/19 - Detailed Diagnosis and Plan (1) On parenteral nutrition Current Visit: Yes Status: Acute Base Code: Z78.9 - OTHER SPECIFIED HEALTH STATUS Comment: 10/02/19 - Getting approximately 50% of needs from TPN and 50% from Oral intake - Pharmacy to dose TPN - Advance diet per surgeon, Dr. Garcia. Next follow-up scheduled 10/04/19 (2) History of colectomy Current Visit: Yes Status: Acute Base Code: Z90.49 - ACQUIRED ABSENCE OF OTHER SPECIFIED PARTS OF DIGESTIVE TRACT Comment: 10/02/19 - TPN with pharmacy to dose until follow up with surgeon - Tolerating full liquid diet well - Drain to RLQ draining brown odorous fluid - Afebrile - Follow-up with surgeon, Dr. Garcia, as scheduled 10/04/19 (3) Physical deconditioning Current Visit: Yes Status: Acute Base Code: R53.81 - OTHER MALAISE Comment: 10/02/19 - PT/PT for gait training, stability and strengthening (4) Oral thrush Current Visit: No Status: Acute Base Code: B37.0 - CANDIDAL STOMATITIS Comment: 10/02/19: - Oral thrush since discharge from [facility] - Completed course of Diflucan 200mg IVPB - Nystatin 5mL QID - Oral culture pending (5) Hypertension Current Visit: No Status: Acute Base Code: I10 - ESSENTIAL (PRIMARY) HYPERTENSION Comment: 10/02/19 - Metoprolol 100mg QD - Losartan 100mg QD - BP remains at goal (6) DVT prophylaxis Current Visit: Yes Status: Acute Base Code: Z29.9 - ENCOUNTER FOR PROPHYLACTIC MEASURES, UNSPECIFIED Comment: 10/02/19: - Moderate risk due to age, recent surgery, and deconditioning - Patient participating with PT, frequent ambulation within halls and room noted (7) Full code status Current Visit: Yes Status: Acute Base Code: Z78.9 - OTHER SPECIFIED HEALTH S TATUS Comment: 10/02/19 - Patient is a full code
[2019-10-02] MEDS: LOSARTAN POTASSIUM 100 MG TABLET PO SCH (12:47)
[2019-10-02] MEDS: [UNRECOGNIZED DRUG - OTHER] IV SCH ×13 (21:44)
[2019-10-02] MEDS: SODIUM CHLORIDE IV SCH ×13 (21:44)
[2019-10-02] MEDS: SODIUM ACETATE IV SCH ×13 (21:44)
[2019-10-03 08:46] LABS: ALBUMIN 3.1 g/dL (4.0-5.0); ALKALINE PHOSPHATASE 75 U/L (35-104); ALT/SGPT 7 U/L (<33); AST/SGOT 15 U/L (10.0-35.0); BLOOD UREA NITROGEN 21 mg/dL (8-23); CREATININE 0.6 mg/dL (0.5-0.9); EST GLOMERULAR FILTRATION RATE > 60 mL/min; GLUCOSE,RANDOM 118 mg/dL (74-109); TOTAL PROTEIN 6.3 g/dL (6.6-8.7)
[2019-10-03] MEDS: 0.9 % SODIUM CHLORIDE 10ML SYR IVP SCH ×2 (09:12→21:36)
[2019-10-03] MEDS: BIFIDOBACTERIUM INFANTIS 4 MG CAPSULE PO SCH (09:13)
[2019-10-03] MEDS: HEPARIN SODIUM FLUSH 100 UNITS/ML SYR 5ML IV SCH ×2 (09:13→21:36)
[2019-10-03] MEDS: OCTREOTIDE ACETATE 100 MCG/ML SC SCH (09:13)
[2019-10-03] MEDS: NYSTATIN 100,000 UNITS/ML 5ML CUP PO SCH ×4 (09:13→21:35)
[2019-10-03] MEDS: FAMOTIDINE IV 20 MG/2 ML VIAL IVP SCH ×2 (09:13→21:35)
[2019-10-03] MEDS: METOPROLOL SUCC 50 MG TABLET PO SCH (09:14)
[2019-10-03] MEDS: LOSARTAN POTASSIUM 100 MG TABLET PO SCH (12:40)
[2019-10-03] MEDS: [UNRECOGNIZED DRUG - OTHER] IV SCH ×13 (21:33)
[2019-10-03] MEDS: SODIUM CHLORIDE IV SCH ×13 (21:33)
[2019-10-03] MEDS: SODIUM ACETATE IV SCH ×13 (21:33)
[2019-10-03] MEDS: ALPRAZOLAM 0.25 MG TABLET PO PRN (21:34)
[2019-10-04 09:08] LABS: BLOOD UREA NITROGEN 18 mg/dL (8-23); CREATININE 0.6 mg/dL (0.5-0.9); EST GLOMERULAR FILTRATION RATE > 60 mL/min; GLUCOSE,RANDOM 143 mg/dL (74-109)
[2019-10-04] MEDS: 0.9 % SODIUM CHLORIDE 10ML SYR IVP SCH (09:14)
[2019-10-04] MEDS: HEPARIN SODIUM FLUSH 100 UNITS/ML SYR 5ML IV SCH (09:15)
[2019-10-04] MEDS: BIFIDOBACTERIUM INFANTIS 4 MG CAPSULE PO SCH (09:15)
[2019-10-04] MEDS: METOPROLOL SUCC 50 MG TABLET PO SCH (09:15)
[2019-10-04] MEDS: NYSTATIN 100,000 UNITS/ML 5ML CUP PO SCH ×4 (09:15→22:20)
[2019-10-04] MEDS: FAMOTIDINE IV 20 MG/2 ML VIAL IVP SCH (09:15)
[2019-10-04] MEDS: OCTREOTIDE ACETATE 100 MCG/ML SC SCH (09:15)
[2019-10-04] MEDS: LOSARTAN POTASSIUM 100 MG TABLET PO SCH (12:06)
[2019-10-04] MEDS: ALPRAZOLAM 0.25 MG TABLET PO PRN (22:20)
[2019-10-05] MEDS: PANTOPRAZOLE SODIUM 40 MG TABLET PO SCH (07:06)
[2019-10-05] MEDS ORDERED: 0.9 % SODIUM CHLORIDE 10ML SYR IVP SCH ×2 (10:00)
[2019-10-05] MEDS ORDERED: HEPARIN SODIUM FLUSH 100 UNITS/ML SYR 5ML IVP SCH ×2 (10:00)
[2019-10-05] MEDS: METOPROLOL SUCC 50 MG TABLET PO SCH (10:35)
[2019-10-05] MEDS: BIFIDOBACTERIUM INFANTIS 4 MG CAPSULE PO SCH (10:35)
[2019-10-05] MEDS: NYSTATIN 100,000 UNITS/ML 5ML CUP PO SCH ×4 (10:35→21:28)
[2019-10-05] MEDS: LOSARTAN POTASSIUM 100 MG TABLET PO SCH (14:00)
--- NOTE | 2019-10-05 14:48 | Rehab Discharge Summary ---
Patient Information - Patient Information Diagnosis: Colectomy Ordered Treatment: PT Evaluate and Treat Surgery: Yes Past Medical/Surgical Hx: PAST MEDICAL/SURGICAL HISTORY Past Surgical History gall bladder, c section, hyst, perf bowel, bladder suspension,appy, tonsils, cataract PMH - Respiratory Hx Respiratory Disorders No PMH - Cardiovascular Hx Cardiovascular Disorders No Hx Hypertension Yes PMH - Neuro Hx Neurological Disorders Yes Hx Neuropathy Yes: feet PMH - GI Hx Gastrointestinal Disorders Yes Hx Abdominal Pain Yes Hx Diverticulitis Yes Hx Gastroesophageal Reflux Yes Hx Hepatitis/Jaundice Yes: hep b 1965 Hx Irritable Bowel Yes Hx Obstructive Bowel Yes Hx Weight Loss/Weight Gain Yes Comment: colectomy PMH - Hx Genitourinary Disorders No Comment: frequency during night PMH - Endocrine Hx Endocrine Disorders No Hx Diabetes No Hx Thyroid Disease No PMH - Musculoskeletal Hx Musculoskeletal Disorders Yes Hx Arthritis Yes PMH - Psych Hx Psychiatric Problems Yes Hx Anxiety Yes PMH - Hematology/Oncology Hx Hematology/Oncology Yes Disorders Hx Cancer Yes: gallbladder Comment: gall bladder Premorbid Status: Detail (Patient was independent in cooking, cleaning, and laundry. She also did yardwork such as cutting the lawn and gardening. For ambulation, she did not need to use an AD.) Social History: Detail (Patient lives in a 1-story home with her . There are 3 stairs to enter with no railing. She said that their laundry is in the basement and there is a flight of stairs to get down there with 2 railings. In the bathroom there is a walk-in shower with a shower bench and a hand held shower head but no grab bars. The toilet is raised and there are no grab bars but she said there is something for her to hang onto.) Precautions: [place], Fall Subjective Information - Subjective Information Per Patient Objective Data - Mental Status Patient Orientation: Oriented x3 - Visual Perception Appears within normal limits for therapeutic activities - ROM Within normal limits (LE AROM is within normal limits for functional activities.) - Strength/Tone Within normal limits (Bilateral hip flexion 4/5, bilateral hip abduction and adduction, and knee flexion and extension 5/5, bilateral ankle dorsiflexion 4/5. Right hip flexion, knee flexion and extension, and bilateral hip abduction has improved since the time of the intial evaluation. Patient has maintained strength in other measurements.) - Coordination Appears within normal limits for therapeutic activities - Bed Mobility Independent (Patient is independent in all bed mobility tasks.) - Transfers Independent (Patient is independent with sit to stand, stand to sit, supine to sit, and sit to supine.) - Balance Balance Sitting: Good Balance Standing: Good - Sensation Intact - Gait Detail (Patient is able to ambulate distances of 500+ feet without the IV pole with good stability. She ambulates with a reciprocal step through gait pattern. Patient was independent in ascending and descending 3 stairs with use of bilateral hand rails. She refused completing stair training over a flight of stairs, and stated that she feels okay with being able to do a flight of stairs at home.) Therapy Assessment - Therapy Assessment Detail (Patient has met 2.5/3 of her inpatient goals at this time. She has improved in her ambulatory distance without becoming short of breath. She was also able to progress her exercise program, and maintain and improve strength. No further physical therapy is recommended at this time.) Problem List - Problem List Physical Therapy Problem List: Detail (1. Decreased LE strength 2. Decreased endurance during ambulation 3. Decreased tolerance for stairs) Occupational Therapy Problem List: Detail (1. Need to further assess showering and total body dressing. 2. Need to further assess IADL tasks.) Goals - Goals Physical Therapy Goals: 1. Patient will be independent in a HEP to maintain and improve LE strength for functional activities. GOAL MET. 2. Patient will be independent in ascending and descending 10 stairs to be able to use the stairs to her basement after discharge. Goal Partially Met. 3. Patient will be able to ambulate 200 feet independently without an AD without shortness of breath to be able to ambulate in the community. GOAL MET Occupational Therapy Goals: 1. Pt will be safe and Ind with showering and total body dressing. 2. Pt will be Ind with light kitchen task using AD as needed. Plan - Plan Physical Therapy Plan: Patient is being discharged from inpatient physical therapy at this time. Occupational Therapy Plan: Pt will be seen 1-3 times per week to address goals as above.
--- NOTE | 2019-10-05 14:59 | Rehab Discharge Summary ---
Patient Information - Patient Information Diagnosis: Colectomy Ordered Treatment: OT Evaluate and Treat Past Medical/Surgical Hx: PAST MEDICAL/SURGICAL HISTORY Past Surgical History gall bladder, c section, hyst, perf bowel, bladder suspension,appy, tonsils, cataract PMH - Respiratory Hx Respiratory Disorders No PMH - Cardiovascular Hx Cardiovascular Disorders No Hx Hypertension Yes PMH - Neuro Hx Neurological Disorders Yes Hx Neuropathy Yes: feet PMH - GI Hx Gastrointestinal Disorders Yes Hx Abdominal Pain Yes Hx Diverticulitis Yes Hx Gastroesophageal Reflux Yes Hx Hepatitis/Jaundice Yes: hep b 1965 Hx Irritable Bowel Yes Hx Obstructive Bowel Yes Hx Weight Loss/Weight Gain Yes Comment: colectomy PMH - Hx Genitourinary Disorders No Comment: frequency during night PMH - Endocrine Hx Endocrine Disorders No Hx Diabetes No Hx Thyroid Disease No PMH - Musculoskeletal Hx Musculoskeletal Disorders Yes Hx Arthritis Yes PMH - Psych Hx Psychiatric Problems Yes Hx Anxiety Yes PMH - Hematology/Oncology Hx Hematology/Oncology Yes Disorders Hx Cancer Yes: gallbladder Comment: gall bladder Premorbid Status: Detail (Patient was independent in cooking, cleaning, and laundry. She also did yardwork such as cutting the lawn and gardening. For ambulation, she did not need to use an AD.) Social History: Detail (Patient lives in a 1-story home with her . There are 3 stairs to enter with no railing. She said that their laundry is in the basement and there is a flight of stairs to get down there with 2 railings. In the bathroom there is a walk-in shower with a shower bench and a hand held shower head but no grab bars. The toilet is raised and there are no grab bars but she said there is something for her to hang onto.) Precautions: [place], Fall Subjective Information - Subjective Information Per Patient Objective Data - Pain Pain Present: No - Mental Status Patient Orientation: Oriented x3 - Visual Perception Appears within normal limits for therapeutic activities - ROM Within normal limits (Antolin UE AROM WNL) - Strength/Tone Within normal limits (Antolin UE strength 4/5) - Coordination Appears within normal limits for therapeutic activities - Bed Mobility Independent - Transfers Independent - Balance Balance Sitting: Good Balance Standing: Good - Sensation Intact - Gait Detail (Pt ambulating community distances Indly.) - ADL's/IADL's Detail (Pt is Ind with all self care tasks including showering and dressing. Reviewed modifications and work simplification techniques for laundry and kitchen tasks, pt verbalized understanding.) Therapy Assessment - Therapy Assessment Detail (Pt is safe and Ind with all ADLs.) Problem List - Problem List Physical Therapy Problem List: Detail (1. Decreased LE strength 2. Decreased endurance during ambulation 3. Decreased tolerance for stairs) Occupational Therapy Problem List: Detail (1. Need to further assess showering and total body dressing. 2. Need to further assess IADL tasks.) Goals - Goals Physical Therapy Goals: 1. Patient will be independent in a HEP to maintain and improve LE strength for functional activities. GOAL MET. 2. Patient will be independent in ascending and descending 10 stairs to be able to use the stairs to her basement after discharge. Goal Partially Met. 3. Patient will be able to ambulate 200 feet independently without an AD without shortness of breath to be able to ambulate in the community. GOAL MET Occupational Therapy Goals: Goals Met: 1. Pt will be safe and Ind with showering and total body dressing. 2. Pt will be Ind with light kitchen task using AD as needed. Prognosis - Prognosis Good Plan - Plan Physical Therapy Plan: Patient will be seen 1-2x per week, M-F, for therapeutic exercises and activities, gait training, transfer training, and HEP instruction. Occupational Therapy Plan: Pt discharging home on 10/06/19 with spouse. No further OT recommended at this time.
[2019-10-05] MEDS: ALPRAZOLAM 0.25 MG TABLET PO PRN ×2 (22:08→23:02)
[2019-10-06] MEDS: PANTOPRAZOLE SODIUM 40 MG TABLET PO SCH (06:21)
[2019-10-06] MEDS: NYSTATIN 100,000 UNITS/ML 5ML CUP PO SCH (10:02)
[2019-10-06] MEDS: METOPROLOL SUCC 50 MG TABLET PO SCH (10:02)
[2019-10-06] MEDS: BIFIDOBACTERIUM INFANTIS 4 MG CAPSULE PO SCH (10:02)
--- NOTE | 2019-10-06 12:48 | Discharge Summary ---
Providers Discharge Summary Date: 10/06/19 Date of admission: 09/09/19 11:46 Attending physician: PADMINI MONTGOMERY Primary care physician: LYNN QUIGLEY D.O. Physical Exam - Vital Signs Vital Signs: Vital Signs - Last 24 Hrs Temp Pulse Resp BP Pulse Ox 10/06/19 08:00 99.4 F 100 H 17 125/52 97 10/05/19 20:00 98.4 F 97 H 20 133/47 97 - General General Appearance: Alert, Oriented x3, Cooperative, No acute distress Limitations: No limitations - Head Head exam: Atraumatic, Normocephalic - Eye Eye exam: Normal appearance, EOMI - ENT ENT exam: Normal exam, Mucous membranes moist, Normal external ear exam Ear exam: Normal external inspection. negative: External canal tenderness Nasal Exam: Normal inspection. negative: Discharge, Sinus tenderness Mouth exam: Tongue elevation (lacy white patches on tongue) Teeth exam: Normal inspection. negative: Dental caries Throat exam: negative: Tonsillar erythema, Tonsillar exudate - Neck Neck exam: Normal inspection - Respiratory Respiratory exam: negative: Respiratory distress - Cardiovascular Cardiovascular Exam: Regular rate, Normal rhythm, Normal heart sounds Peripheral Pulses: 2+: Radial (R), Radial (L) - GI/Abdominal GI/Abdominal exam: Soft, Normal bowel sounds, Other (drain located on RLQ draining red odorous fluid). negative: Distended, Tenderness - Rectal Rectal exam: Deferred - exam: Deferred - Extremities Extremities exam: Normal inspection. negative: Pedal edema - Neurological Neurological exam: Alert, Normal gait, Oriented X3 - Psychiatric Psychiatric exam: Normal affect, Normal mood - Skin Skin exam: Normal color Hospitalization - Hospitalization Admission Diagnosis: colectomy - Problem List (1) Physical deconditioning Status: Acute Base Code: R53.81 - OTHER MALAISE Comment: 10/06/19 - Refer to PT notes for details of physical status. - PT/PT for gait training, stability and strengthening (2) History of colectomy Status: Acute Base Code: Z90.49 - ACQUIRED ABSENCE OF OTHER SPECIFIED PARTS OF DIGESTIVE TRACT Comment: 10/06/19 - TPN with pharmacy to dose until follow up with surgeon - Tolerating full liquid diet well - Drain to RLQ draining brown odorous fluid - Afebrile - Follow-up with surgeon, Dr. Garcia, as scheduled 10/04/19 (3) Hypertension Status: Acute Base Code: I10 - ESSENTIAL (PRIMARY) HYPERTENSION Comment: 10/06/19 - Metoprolol 100mg QD - Losartan 100mg QD - BP remains at goal (4) On parenteral nutrition Status: Acute Base Code: Z78.9 - OTHER SPECIFIED HEALTH STATUS Comment: 10/06/19 - Getting approximately 50% of needs from TPN and 50% from Oral intake - Pharmacy to dose TPN - Advance diet per surgeon, Dr. Garcia. Next follow-up scheduled 10/04/19 (5) Oral thrush Status: Acute Base Code: B37.0 - CANDIDAL STOMATITIS Comment: 10/06/19: - Ongoing thrush without imporovement using Diflucan. - Nystatin 5mL QID - Oral culture pending and should be followed at discharge. (6) DVT prophylaxis Status: Acute Base Code: Z29.9 - ENCOUNTER FOR PROPHYLACTIC MEASURES, UNSPECIFIED Comment: 10/06/19: - Moderate risk due to age, recent surgery, and deconditioning - Patient participating with PT, frequent ambulation within halls and room noted (7) Full code status Status: Acute Base Code: Z78.9 - OTHER SPECIFIED HEALTH STATUS Comment: 10/06/19 - Patient is a full code - Hospitalization Course Disposition: Home, Self-Care Hospital Course: 84 y/o female admitted to swing bed after prolonged hospitalization at [facility] from 08/18/19-09/09/19 for bowel perforation after swallowing a chicken bone that subsequently caused sigmoid colon perforation and underwent open sigmoid colectomy with an enterotomy and segmental small bowel resection. 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 2 intra-abdominal drains were placed and she was started on TPN. 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 She was on Zosyn for majority of her hospital stay and subsequently changed to daptomycin for VRE coverage. Past medical history includes HTN, adjustment disorder with anxiety, diverticulitis, cancer of the gallbladder. The patient showed improvement after a protracted course in the rehab program. She was on TPN during her stay and was evaluated by her surgeon on prior to discharge. Her diet was advanced slowly which she tolerated and TPN was discontinued. The patient BP:133/70 HR 79 T 37.2C WBC 14 PCP: Dr Quigley Abnormal Labs: Abnormal Lab Results 09/10/19 09/10/19 09/10/19 Range/Units 06:50 17:05 17:27 RBC (3.80-5.40) M/uL Hgb (11.6-16.0) gm/dl Hct (35.0-47.0) % MCHC (32-36) g/dl RDW (11.5-14.5) % MPV (7.4-10.4) fl Sodium 133 L (136-145) mmol/L Potassium (3.4-4.5) mmol/L Chloride 96 L (98-107) mmol/L BUN (8-23) mg/dL POC Glucose 172 H 172 H (70-110) mg/dL Random Glucose 176 H (74-109) mg/dL Calcium 8.6 L (8.8-10.2) mg/dL Alkaline Phosphatase (35-104) U/L Total Protein (6.6-8.7) g/dL Albumin (4.0-5.0) g/dL Albumin/Globulin Ratio (1.1-1.8) Triglycerides (<150) mg/dL 09/10/19 09/11/19 09/11/19 Range/Units 22:43 06:00 07:53 RBC (3.80-5.40) M/uL Hgb (11.6-16.0) gm/dl Hct (35.0-47.0) % MCHC (32-36) g/dl RDW (11.5-14.5) % MPV (7.4-10.4) fl Sodium (136-145) mmol/L Potassium (3.4-4.5) mmol/L Chloride (98-107) mmol/L BUN (8-23) mg/dL POC Glucose 144 H 168 H (70-110) mg/dL Random Glucose 168 H (74-109) mg/dL Calcium (8.8-10.2) mg/dL Alkaline Phosphatase (35-104) U/L Total Protein (6.6-8.7) g/dL Albumin (4.0-5.0) g/dL Albumin/Globulin Ratio (1.1-1.8) Triglycerides (<150) mg/dL 09/11/19 09/11/19 09/12/19 Range/Units 11:31 18:07 06:15 RBC (3.80-5.40) M/uL Hgb (11.6-16.0) gm/dl Hct (35.0-47.0) % MCHC (32-36) g/dl RDW (11.5-14.5) % MPV (7.4-10.4) fl Sodium (136-145) mmol/L Potassium (3.4-4.5) mmol/L Chloride (98-107) mmol/L BUN (8-23) mg/dL POC Glucose 156 H 147 H (70-110) mg/dL Random Glucose (74-109) mg/dL Calcium (8.8-10.2) mg/dL Alkaline Phosphatase (35-104) U/L Total Protein (6.6-8.7) g/dL Albumin (4.0-5.0) g/dL Albumin/Globulin Ratio (1.1-1.8) Triglycerides 243 H (<150) mg/dL 09/12/19 09/12/19 09/12/19 Range/Units 06:15 07:29 12:16 RBC (3.80-5.40) M/uL Hgb (11.6-16.0) gm/dl Hct (35.0-47.0) % MCHC (32-36) g/dl RDW (11.5-14.5) % MPV (7.4-10.4) fl Sodium (136-145) mmol/L Potassium (3.4-4.5) mmol/L Chloride (98-107) mmol/L BUN (8-23) mg/dL POC Glucose 153 H 155 H (70-110) mg/dL Random Glucose 167 H (74-109) mg/dL Calcium (8.8-10.2) mg/dL Alkaline Phosphatase 127 H (35-104) U/L Total Protein 6.4 L (6.6-8.7) g/dL Albumin 2.9 L (4.0-5.0) g/dL Albumin/Globulin Ratio 0.8 L (1.1-1.8) Triglycerides (<150) mg/dL 09/13/19 09/13/19 09/13/19 Range/Units 06:30 06:30 10:00 RBC 3.38 L (3.80-5.40) M/uL Hgb 9.6 L (11.6-16.0) gm/dl Hct 31.3 L (35.0-47.0) % MCHC 30.7 L (32-36) g/dl RDW 16.4 H (11.5-14.5) % MPV 12.8 H (7.4-10.4) fl Sodium (136-145) mmol/L Potassium (3.4-4.5) mmol/L Chloride (98-107) mmol/L BUN (8-23) mg/dL POC Glucose 176 H (70-110) mg/dL Random Glucose 162 H (74-109) mg/dL Calcium (8.8-10.2) mg/dL Alkaline Phosphatase (35-104) U/L Total Protein (6.6-8.7) g/dL Albumin (4.0-5.0) g/dL Albumin/Globulin Ratio (1.1-1.8) Triglycerides (<150) mg/dL 09/14/19 09/14/19 09/14/19 Range/Units 06:25 10:54 22:15 RBC (3.80-5.40) M/uL Hgb (11.6-16.0) gm/dl Hct (35.0-47.0) % MCHC (32-36) g/dl RDW (11.5-14.5) % MPV (7.4-10.4) fl Sodium (136-145) mmol/L Potassium 4.6 H (3.4-4.5) mmol/L Chloride (98-107) mmol/L BUN (8-23) mg/dL POC Glucose 167 H 128 H (70-110) mg/dL Random Glucose 163 H (74-109) mg/dL Calcium (8.8-10.2) mg/dL Alkaline Phosphatase (35-104) U/L Total Protein (6.6-8.7) g/dL Albumin (4.0-5.0) g/dL Albumin/Globulin Ratio (1.1-1.8) Triglycerides (<150) mg/dL 09/15/19 09/15/19 09/16/19 Range/Units 06:20 11:56 06:15 RBC (3.80-5.40) M/uL Hgb (11.6-16.0) gm/dl Hct (35.0-47.0) % MCHC (32-36) g/dl RDW (11.5-14.5) % MPV (7.4-10.4) fl Sodium 135 L 135 L (136-145) mmol/L Potassium 4.7 H (3.4-4.5) mmol/L Chloride (98-107) mmol/L BUN (8-23) mg/dL POC Glucose 143 H (70-110) mg/dL Random Glucose 144 H 153 H (74-109) mg/dL Calcium (8.8-10.2) mg/dL Alkaline Phosphatase (35-104) U/L Total Protein (6.6-8.7) g/dL Albumin (4.0-5.0) g/dL Albumin/Globulin Ratio (1.1-1.8) Triglycerides (<150) mg/dL 09/16/19 09/17/19 09/17/19 Range/Units 11:47 06:00 10:25 RBC (3.80-5.40) M/uL Hgb (11.6-16.0) gm/dl Hct (35.0-47.0) % MCHC (32-36) g/dl RDW (11.5-14.5) % MPV (7.4-10.4) fl Sodium 135 L (136-145) mmol/L Potassium (3.4-4.5) mmol/L Chloride (98-107) mmol/L BUN (8-23) mg/dL POC Glucose 166 H 150 H (70-110) mg/dL Random Glucose 147 H (74-109) mg/dL Calcium (8.8-10.2) mg/dL Alkaline Phosphatase (35-104) U/L Total Protein (6.6-8.7) g/dL Albumin (4.0-5.0) g/dL Albumin/Globulin Ratio (1.1-1.8) Triglycerides (<150) mg/dL 09/18/19 09/18/19 09/19/19 Range/Units 06:00 10:21 06:20 RBC (3.80-5.40) M/uL Hgb (11.6-16.0) gm/dl Hct (35.0-47.0) % MCHC (32-36) g/dl RDW (11.5-14.5) % MPV (7.4-10.4) fl Sodium 135 L (136-145) mmol/L Potassium (3.4-4.5) mmol/L Chloride (98-107) mmol/L BUN 24 H (8-23) mg/dL POC Glucose 168 H (70-110) mg/dL Random Glucose 154 H 139 H (74-109) mg/dL Calcium (8.8-10.2) mg/dL Alkaline Phosphatase 114 H (35-104) U/L Total Protein 6.3 L (6.6-8.7) g/dL Albumin 3.0 L (4.0-5.0) g/dL Albumin/Globulin Ratio 0.9 L (1.1-1.8) Triglycerides 246 H (<150) mg/dL 09/20/19 09/20/19 09/21/19 Range/Units 06:35 20:27 06:37 RBC (3.80-5.40) M/uL Hgb (11.6-16.0) gm/dl Hct (35.0-47.0) % MCHC (32-36) g/dl RDW (11.5-14.5) % MPV (7.4-10.4) fl Sodium (136-145) mmol/L Potassium (3.4-4.5) mmol/L Chloride (98-107) mmol/L BUN (8-23) mg/dL POC Glucose 132 H (70-110) mg/dL Random Glucose 139 H 145 H (74-109) mg/dL Calcium (8.8-10.2) mg/dL Alkaline Phosphatase (35-104) U/L Total Protein (6.6-8.7) g/dL Albumin (4.0-5.0) g/dL Albumin/Globulin Ratio (1.1-1.8) Triglycerides (<150) mg/dL 09/22/19 09/23/19 09/24/19 Range/Units 06:23 06:18 06:25 RBC (3.80-5.40) M/uL Hgb (11.6-16.0) gm/dl Hct (35.0-47.0) % MCHC (32-36) g/dl RDW (11.5-14.5) % MPV (7.4-10.4) fl Sodium (136-145) mmol/L Potassium (3.4-4.5) mmol/L Chloride (98-107) mmol/L BUN (8-23) mg/dL POC Glucose (70-110) mg/dL Random Glucose 144 H 154 H 145 H (74-109) mg/dL Calcium (8.8-10.2) mg/dL Alkaline Phosphatase (35-104) U/L Total Protein (6.6-8.7) g/dL Albumin (4.0-5.0) g/dL Albumin/Globulin Ratio (1.1-1.8) Triglycerides (<150) mg/dL 09/25/19 09/26/19 09/27/19 Range/Units 06:00 06:20 06:20 RBC (3.80-5.40) M/uL Hgb (11.6-16.0) gm/dl Hct (35.0-47.0) % MCHC (32-36) g/dl RDW (11.5-14.5) % MPV (7.4-10.4) fl Sodium (136-145) mmol/L Potassium (3.4-4.5) mmol/L Chloride (98-107) mmol/L BUN (8-23) mg/dL POC Glucose (70-110) mg/dL Random Glucose 117 H 126 H 127 H (74-109) mg/dL Calcium (8.8-10.2) mg/dL Alkaline Phosphatase (35-104) U/L Total Protein 6.3 L (6.6-8.7) g/dL Albumin 3.2 L (4.0-5.0) g/dL Albumin/Globulin Ratio 1.0 L (1.1-1.8) Triglycerides 199 H (<150) mg/dL 09/28/19 09/29/19 09/30/19 Range/Units 06:30 06:00 06:24 RBC (3.80-5.40) M/uL Hgb (11.6-16.0) gm/dl Hct (35.0-47.0) % MCHC (32-36) g/dl RDW (11.5-14.5) % MPV (7.4-10.4) fl Sodium (136-145) mmol/L Potassium 4.7 H (3.4-4.5) mmol/L Chloride (98-107) mmol/L BUN (8-23) mg/dL POC Glucose (70-110) mg/dL Random Glucose 122 H 127 H 122 H (74-109) mg/dL Calcium (8.8-10.2) mg/dL Alkaline Phosphatase (35-104) U/L Total Protein (6.6-8.7) g/dL Albumin (4.0-5.0) g/dL Albumin/Globulin Ratio (1.1-1.8) Triglycerides (<150) mg/dL 10/01/19 10/02/19 10/03/19 Range/Units 06:20 06:13 06:25 RBC (3.80-5.40) M/uL Hgb (11.6-16.0) gm/dl Hct (35.0-47.0) % MCHC (32-36) g/dl RDW (11.5-14.5) % MPV (7.4-10.4) fl Sodium (136-145) mmol/L Potassium (3.4-4.5) mmol/L Chloride (98-107) mmol/L BUN (8-23) mg/dL POC Glucose (70-110) mg/dL Random Glucose 120 H 120 H 118 H (74-109) mg/dL Calcium (8.8-10.2) mg/dL Alkaline Phosphatase (35-104) U/L Total Protein 6.3 L (6.6-8.7) g/dL Albumin 3.1 L (4.0-5.0) g/dL Albumin/Globulin Ratio 1.0 L (1.1-1.8) Triglycerides (<150) mg/dL 10/03/19 10/04/19 Range/Units 06:25 08:47 RBC (3.80-5.40) M/uL Hgb (11.6-16.0) gm/dl Hct (35.0-47.0) % MCHC (32-36) g/dl RDW (11.5-14.5) % MPV (7.4-10.4) fl Sodium (136-145) mmol/L Potassium (3.4-4.5) mmol/L Chloride (98-107) mmol/L BUN (8-23) mg/dL POC Glucose (70-110) mg/dL Random Glucose 143 H (74-109) mg/dL Calcium (8.8-10.2) mg/dL Alkaline Phosphatase (35-104) U/L Total Protein (6.6-8.7) g/dL Albumin (4.0-5.0) g/dL Albumin/Globulin Ratio (1.1-1.8) Triglycerides 166 H (<150) mg/dL Condition at Discharge: (1) Good Discharge Medications - Discharge Medications Home Medications: Ambulatory Orders Alprazolam [Xanax] 0.5 mg PO QHS PRN tab 04/30/16 [Last Taken 1 Day Ago ~10/11/17] Bifidobacterium Infantis [Align] 4 mg PO QHS PRN cap 04/30/16 [Last Taken 1 Day Ago ~10/11/17] Clobetasol Propionate 60 gm TP BID 04/30/16 [Last Taken 1 Day Ago ~10/11/17] Multivit-Min/FA/Lycopen/Lutein [Centrum Silver Tablet] 1 each PO DAILY tab 04/30/16 [Last Taken 1 Day Ago ~10/11/17] Nystatin/Triamcin [Nystatin-Triamcinolone Cream] 15 gm TP ASDIR 04/30/16 [Last Taken 1 Day Ago ~10/11/17] Omeprazole Magnesium [Prilosec Otc] 20 mg PO QD tab. 04/30/16 [Last Taken 1 Day Ago ~10/11/17] Cholecalciferol (Vitamin D3) [Vitamin D3] 2,000 unit PO DAILY 10/12/17 [Last Taken 1 Day Ago ~10/11/17] Polyethylene Glycol 3350 [Miralax] 1 packet PO DAILY PRN packet 11/20/17 [Last Taken Unknown] Irbesartan/Hydrochlorothiazide [Irbesartan-Hctz 150-12.5 mg Tb] 1 tab PO DAILY 09/12/19 [Last Taken Unknown] Valacyclovir HCl [Valacyclovir] 1 tab PO BID 09/12/19 [Last Taken Unknown] Discharge Plan - Discharge Instructions Diet at Discharge: Regular Diet, Advance to Usual Diet Instructions: Peritonitis (DC) Additional Instructions: Follow up with Dr. Gracia as scheduled on 10/18. Resume all home activities as tolerated. Resume all home medications and follow up with Dr. He within 1 week of discharge. Quality Measures - Quality Measures Quality Measures: Advance Directives, Documentation of Current Medications in Medical Record, Elder Maltreatment Screen and Follow-Up Plan, Screening for High Blood Pressure and F/U Documented - Current Medications Quality Measure: Measure #130: Documentation of Current Medications Documentation of Current Medications: <Current Medications Documented/Reviewed> [G1344] - Blood Pressure Screening Quality Measure: Screening for High Blood Pressure and Follow-Up Documented Does Patient Have Any of the Following: Active Dx of HTN Blood Pressure Classification: Normal BP Reading Systolic Measurement: 116 Diastolic Measurement: 48 Screening for High Blood Pressure: Patient Exclusion, Hx of HTN [G9744] - Advance Directives Quality Measure: Measure #47: Care Plan Advance Directives Established: Yes Advance Directives Information Provided To Patient: No Advance Directives on File: No Living Will: Yes Power of Kitchen Cleaner: Yes Power of Kitchen Cleaner Name: giselle sellers Advance Care Planning: <Care Plan/Decision Maker Documented; Discussed & Documented> [[id number]] - Elder Abuse Suspicion Index Screening: Elder Abuse Suspicion Index Screening Rely on people for bathing, dressing, shopping, banking, etc: Yes Prevented from getting food, clothes, medication, etc: No Made to feel shamed or threatened by someone: No Forced to sign papers or use money against will: No Feel afraid, touched in ways not wanted or hurt physically: No Poor eye contact, withdrawn, malnourished, cuts or bruises: No Screening Result: Negative result EASI Reference Information: Julieta ALEGRIA, Grant C, Odilia D, Laine M.Development and validation of a tool to assist physicians identification of elder abuse: The Elder Abuse Suspicion Index (EASI ). Journal of Elder Abuse and Neglect, 2008; 20 (3): 276-300. - Elder Maltreatment Screen Quality Measures: Elder Maltreatment Screen and Follow-Up Plan Elder Maltreatment Screen: <Negative, No Follow-Up Plan Required> [G8734]
== END 2019-10-06 13:33 | disposition home or self-care (01) | DRG 373 ==
LOC: MEDSURG 11:46
PROVIDERS: ADMIT Internal Medicine; ATTEND Internal Medicine
DX: K65.8 Other peritonitis (principal); F41.9 Anxiety disorder, unspecified; Z90.49 Acquired absence of other specified parts of digestive tract; F43.22 Adjustment disorder with anxiety; Z78.9 Other specified health status; K21.9 Gastro-esophageal reflux disease without esophagitis; G62.9 Polyneuropathy, unspecified; Z87.891 Personal history of nicotine dependence; Z85.89 Personal history of malignant neoplasm of other organs and systems
CPT/HCPCS: 36416; 80048; 80053; 82948; 83735; 84100; 84478; 85027; 87102; 90686; 97530; 99306; 99310; J0878; J2354; J3480; J3490